=== PATIENT | female | born 1935 | race Caucasian/White ===

== ENCOUNTER 2024-03-13 21:53 | Inpatient (IN) | payer MEDICARE, OTHER, SELFPAY ==
[2024-03-13] VITALS (7 sets, daily range): BP systolic 114–152; BP diastolic 61–134; BMI 23.0
[2024-03-13 13:07] LABS: % Basophils 0.4 % (0-2); % Eosinophils 0.6 % (0-6); % Immature Granulocytes 0.5 % (0-0.5); % Lymphocytes 5.5 % (20.5-51.1); Absolute Eosinophils 0.1 10^3/uL (0-0.7); Absolute Immature Granulocytes 0.1 10^3/uL (0-0.05); Absolute Lymphocytes 0.6 10^3/uL (1.2-3.4); Absolute Monocytes 0.9 10^3/uL (0.1-0.6); Absolute Neutrophils 8.5 10^3/uL (1.4-6.5); Hematocrit 30.7 % (37.0-47.0); Hemoglobin 9.9 g/dL (12.0-16.0); Mean Corp Hgb Conc. 32.2 g/dL (33.0-37.0); Mean Corpuscular Hgb 29.7 pg (27.0-31.0); Mean Corpuscular Volume 92.2 fL (81.0-99.0); Nucleated Red Blood Cells % 0 %; Platelet Count 285 10^3/uL (130-400); Red Blood Cell Count 3.33 10^6/uL (4.20-5.40); Red Cell Dist. Width 14.8 % (11.5-14.5); White Blood Cell Count 10.1 10^3/uL (4.8-10.8)
[2024-03-13 13:26] LABS: NT-proBNP 8020 pg/ml
[2024-03-13 13:46] LABS: ALT (SGPT) 18 U/L (0-35); AST (SGOT) 36 U/L (14-36); Albumin 3.1 g/dl (3.5-5.0); Alkaline Phosphatase 80 U/L (38-126); Blood Urea Nitrogen 33 mg/dl (7-17); Calcium 8.9 mg/dl (8.4-10.2); Carbon Dioxide 24 mmol/L (22-30); Chloride 102 mmol/L (98-107); Glucose 133 mg/dl (70-99); Lipase 129 U/L (23-300); Potassium 4.3 mmol/L (3.5-5.1); Sodium 132 mmol/L (135-145); Total Bilirubin 0.4 mg/dl (0.2-1.3); Total Protein 5.9 g/dl (6.3-8.2); eGFR 39.55
--- NOTE | 2024-03-13 14:32 | CON.CRS ---
Consultation
-
Date/Time Consultation Requested: 03/13/2024
Date/Time Consultation Performed: 03/13/2024, 14:33
Performing Provider: Dillon Chcias MD
Reason for Consultation: abdominal pain
Medical History
-
Chief Complaint: abdominal pain
History of Present Illness:
Patient is an 88-year-old female with PMH of PUD, HLD, HTN, aortic insufficiency, A-fib, right phrenic nerve palsy, CAD (s/p coronary stents), and distal rectal cancer s/p robotic LAR with DLI in by Dr. Evangelista in 05/2022 s/p DLI reversal 08/2022 (path
showed positive LVI, tumor cells and 1 out of 19 lymph nodes; plan at that time was to monitor only, no adjuvant therapy, with no active surveillance).� She has followed with Dr. Evangelista, last appointment was February 2023. At that time she was having
loose stools with urgency and was directed to avoid dairy, use Metamucil and Imodium as needed.�
She presents today for worsening symptoms of rectal bleeding and incontinence for the last month, as well as some abdominal pain.�Her daughter had called our office last week with concerns the patient felt like 'something was in her rectum' and had
been complaining of abdominal and perianal pain. It was advised she follow-up this week and saw Dr. Chicas earlier today. During the exam, he was unable to advance his finger past her anastomosis. Given her abdominal pain and perianal pain, he
advised her to go to the ER. Currently she denies any fevers or issues with nausea/vomiting. She has had a good appetite and eating well.� She has noted some intermittent lower abdominal pains mostly on the left but sometimes on the right. Currently
she had right lower quadrant pain.� Her BMs have been loose and incontinent with bleeding. She also complaints of SOB, and saw her diesel engine mechanic today. Currently she is in the Er waiting room.
Past Medical History
Past Medical History: CAD, Cancer (rectal cancer), HTN, Hypercholesterolemia and Other (osteoarthritis, gastric ulcer, diverticulosis, edema, right phrenic nerve palsy, dementia)
Past Surgical History: Cardiac (bypass s/p stents, aortic valve insufficiency), Cholecystectomy, Gynecological (tubal ligation, Flex Sig and resection and closure of ileostomy 08/2022, robotic LAR with DLI in by Dr. Evangelista in 05/2022) and Other
(inguinal hernia repair 2003 & 2004, inguinal hernia repair 2003 & 2004, cataract surgery, )
Social History
Tobacco: Non-Smoker
Alcohol: None
Drug: None
Family History
Family History: Reviewed & Not Pertinent
Allergies / Home Medications
Allergy/AdvReac Type Severity Reaction Status Date / Time
amlodipine Allergy Unknown Verified 03/13/24 12:41
clarithromycin Allergy Nausea Verified 03/13/24 12:41
codeine [Codeine] Allergy vomiting/na Verified 03/13/24 12:41
usea
erythromycin base Allergy Nausea Verified 03/13/24 12:41
oxycodone HCl [From Percocet] Allergy Nausea Verified 03/13/24 12:41
�Medication �Instructions �Recorded �Confirmed �Type
aspirin 81 mg tablet,delayed 81 mg PO DAILY Blood clot 03/16/19 09/08/22 History
release (Adult Low Dose Aspirin) prevention/tx
ezetimibe 10 mg tablet 10 mg PO QPM High cholesterol 03/16/19 09/08/22 History
isosorbide mononitrate 60 mg 120 mg PO DAILY Blood pressure 03/16/19 09/08/22 History
tablet,extended release 24 hr
ramipril 5 mg capsule 5 mg PO DAILY Blood pressure 03/16/19 09/08/22 History
apixaban 2.5 mg tablet (Eliquis) 2.5 mg PO BID Blood clot 05/28/20 09/08/22 History
prevention/tx
potassium chloride 10 mEq 10 meq PO DAILY Supplement 03/26/22 09/08/22 History
capsule,extended release
amlodipine 5 mg tablet 5 mg PO DAILY Blood pressure ##90 03/30/22 09/08/22 Rx
furosemide 40 mg tablet 40 mg PO QPM Fluid 03/30/22 09/08/22 Rx
retention/Swelling #30 tabs
furosemide 80 mg tablet 80 mg PO DAILY Fluid 03/30/22 09/08/22 Rx
retention/Swelling #30 tabs
nitroglycerin 0.4 mg sublingual 0.4 mg sublingual Q5-15M PRN chest 06/16/22 09/07/22 History
tablet pain
pravastatin 80 mg tablet 80 mg DAILY 06/21/22 09/08/22 History
Review of Systems
-
History Source: Patient and Family
All other systems: Negative unless noted
Respiratory: Other (shortness of breath)
Abdomen/GI: Abdominal Pain, Diarrhea and Bloody Stools
: Incontinence
A 10 point review of systems was completed, and was negative except as per HPI.
Physical Exam
Vital Signs
Temp 98.0 F 03/13/24 12:41
Pulse 89 03/13/24 12:41
Resp Rate 18 03/13/24 12:41
Blood pressure 121/61 03/13/24 12:41
SaO2 99 03/13/24 12:41
Lab Results / Allergies
03/13/24 12:58
03/13/24 12:58
WBC 10.1 10^3/uL (4.8-10.8) 03/13/24 12:58
Hgb 9.9 g/dL (12.0-16.0) L 03/13/24 12:58
Hct 30.7 % (37.0-47.0) L 03/13/24 12:58
Plt Count 285 10^3/uL (130-400) 03/13/24 12:58
Abs Immat Gran (auto) 0.1 10^3/uL (0-0.05) H 03/13/24 12:58
Neutrophils % 84.0 % (42.2-75.2) H 03/13/24 12:58
Allergy/AdvReac Type Severity Reaction Status Date / Time
amlodipine Allergy Unknown Verified 03/13/24 12:41
clarithromycin Allergy Nausea Verified 03/13/24 12:41
codeine [Codeine] Allergy vomiting/na Verified 03/13/24 12:41
usea
erythromycin base Allergy Nausea Verified 03/13/24 12:41
oxycodone HCl [From Percocet] Allergy Nausea Verified 03/13/24 12:41
Physical Exam
General: No Apparent Distress
GI: Soft and Tender (LLQ/RLQ (currently worse in RLQ))
Rectal: Other (Per Dr. Chicas in the office earlier today: decreased tone, blood noted, anastamosis is palpable about 4-5cm from anal verge with stenosis and unable to pass finger through)
Skin: Warm and Dry
Neuro: Awake and Alert
Psych: Calm
Data Reviewed
-
Labs: Labs Reviewed by me and Discussed with Family
Old Records: Reviewed
Assessment / Plan
-
Assessment: 88 yo female with a PMH of rectal cancer s/p LAR with ileostomy by Dr. Evangelista in 2021 and then subsequent reversal of ileostomy, presents to our office earlier today due to worsening abdominal and perianal pain with loose/bloody stools
with incontinence and SOB
Plan:
1. Urgent CT A/P with po and IV contrast.
2. Pain control PRN.
3. Remain NPO.
4. Hold Eliquis for now.
5. Further plans to follow once CT performed.
6. Discussed the above with patient's son and patient.
[2024-03-13] MEDS: OMNIPAQUE 50 ML PO (17:16)
[2024-03-13] MEDS: OFIRMEV 100 IV (17:44)
--- NOTE | 2024-03-13 18:52 | ED.GENMED ---
History of Present Illness
General
Chief Complaint: Abdominal Pain
Source: patient
Exam Limitations: none
Time Seen by Provider: 03/13/24 17:00
Travel History
Have you had any contact with someone who has COVID-19?: No
Do you have any symptoms of coronavirus? Fever > 100 degrees, chills, cough, shortness of breath, sore throat, loss of taste or smell, muscle aches, or headache?: No
History of Present Illness
History of Present Illness:
88-year-old female complaining of lower abdominal pain for days. Also some shortness of breath for weeks. Some bloating distention. Sent by colorectal for further evaluation.
Past History
Past History
ED Past Medical History: Arrthythmia (afib), CAD, Cancer, CHF, HTN, Hypercholesterolemia, [place], Valvular disease, Other (SSS) and Other (upper and lower GI bleed)
ED Past Surgical History: Cardiac, Cholecystectomy and Other (Hernia repairs. Resection colon)
Social History
Tobacco: Non-smoker
Review of Systems
Review of Systems
All Other Systems: Not applicable
Constitutional: Denies fever
Respiratory: Reports trouble breathing
Cardiac: Reports no symptoms
Phy Exam
Physical Exam
Physical Exam:
GENERAL: Alert and oriented in no apparent distress
EYE: Orbits normal.
NECK: Supple
ENT: Pharynx without erythema
CARDIAC: Mildly irregular rhythm..
LUNGS: Minimal bibasilar rales. No respiratory distress
ABDOMEN: Mildly distended. Diffuse lower abdominal tenderness. No rebound or guarding no mass or hernia
NEUROLOGICAL: Alert and oriented , grossly non-focal
SKIN: Warm and dry, no rash or lesion, no discoloration, skin intact.
MUSCULOSKELETAL: No edema,no deformity.Good color
PSYCH: Normal and appropriate interaction.
Course
Orders/Labs/Results
Orders:
Orders
03/13/24 Breakfast
NPO
Allow oral meds: Yes
Allow clear liquids: No
03/13/24 12:48
ECG [Electrocardiogram (*1)] Urgent
Reason for Study: Shortness of Breath
EKG- Treatment ONCE
03/13/24 12:58
Complete Blood Count/With Diff Urgent
Comprehensive Metabolic Panel Urgent
Lipase Urgent
NT-proBNP Urgent
03/13/24 17:06
Iohexol [Omnipaque] See Protocol PO NOW STA
CXR2 [CR Chest - 2 Views ] Urgent
Comment:
Reason For Exam: sob
03/13/24 17:07
CT Abd/pel W Iv And Oral Contr Urgent
Comment:
Reason For Exam: Lower abdominal pain
03/13/24 17:14
Acetaminophen 1000MG/100Ml [Ofirmev] 1,000 mg in 100 ml IV ONCE
Acetaminophen IV Indication:: ED Narcotic Naive Pt-ONCE
03/13/24 21:01
Urinalysis Reflex To Culture Urgent
Date Specimen was Collected: 03/14/24
Time Specimen was Collected: 11:48
03/13/24 21:39
Admit/Transfer Patient As Directed
Co-Sign Provider:
Level of Care: Inpatient admission
Assign to:: Telemetry
Physician / Group: adrián
Diagnosis: seroma
Reason for Telemetry: Subacute Heart Failure
Date to Stop Telemetry: 03/15/24
Time to Stop Telemetry: 11:00
Reason for Hospitalization: seroma
Expected length of stay greater than two midnights?: Yes
ELOS- Estimated Length of Stay in days: 3
I certify the patient meets the requirements for IP care: Yes
03/13/24 21:40
Code Status As Directed
Resuscitation Status: Full Code
Furosemide [Lasix] 40 mg IV NOW STA
03/13/24 21:44
UROLOGY CONSULT Routine
Consulting Provider: Ruperto La
Was physician already notified: Yes
03/13/24 23:59
ColoRectal Surgery Consult Routine
Consulting Provider: Dillon Chicas
Was physician already notified: Yes
HF DIETARY CONSULT Routine
HF EDUCATOR CONSULT Routine
Comment:
Activity As Directed
Activity Level: As Tolerated
Intake/ Output As Directed
Frequency: Per unit guidelines
Patient Education As Directed
Type: CHF folder
Comment: give on admission. Document in Interdisciplinary Education record
Sleep Apnea Assessment by RN As Directed
Comment:
Physician Instructions:
Venous Foot Pumps As Directed
Location: Bilateral feet
Vital Signs As Directed
Frequency: Other
Additional Instructions:: Q12 or per unit guidelines if more frequent.
Weight As Directed
Frequency: Daily
Type of Scale: Standing Scale
Comment: Daily morning weight. If unable to stand, use balanced bed scale.
Weight As Directed
Frequency: Once
Type of Scale: Standing Scale
Comment: Upon Admission. If unable to stand, use balanced bed scale.
Pulse Ox/cont/shift [RESP] Routine
Quantity: 1
Special Instructions: Daily pulse oximetry at rest. If greater than 92% at rest also obtain pulse oximetry
while ambulating as tolerated.
Pt Eval And Treat Routine
Activity Level: As Tolerated
DX Deep Vein Thrombosis Video Routine
03/14/24 05:51
Complete Blood Count/No Diff IN AM
03/14/24 05:52
Cardiovascular Evaluation IN AM
Magnesium IN AM
TSH Reflex To Free T4 IN AM
03/14/24 08:00
Aspirin Low Dose EC [Aspir Low (Enteric Coated)] 81 mg PO DAILY
Dapagliflozin [Farxiga] 10 mg PO DAILY
Metoprolol Xl [Toprol Xl] 50 mg PO BID
03/14/24 18:00
Ezetimibe [Zetia] 10 mg PO QPM
Memantine HCl [Namenda] 10 mg PO QPM
Pravastatin Sodium [Pravachol] 80 mg PO QPM
03/15/24 06:00
Basic Metabolic Panel IN AM
Complete Blood Count/No Diff IN AM
03/15/24 11:00
DC Protocol for Telemetry ONCE
03/16/24 06:00
Basic Metabolic Panel IN AM
Complete Blood Count/No Diff IN AM
03/17/24 06:00
Complete Blood Count/No Diff IN AM
03/18/24 06:00
Complete Blood Count/No Diff IN AM
Abnormal Lab Results
03/13/24
12:58
RBC 3.33 L 10^6/uL
(4.20-5.40)
Hgb 9.9 L g/dL
(12.0-16.0)
Hct 30.7 L %
(37.0-47.0)
MCHC 32.2 L g/dL
(33.0-37.0)
RDW 14.8 H %
(11.5-14.5)
Abs Immat Gran (auto) 0.1 H 10^3/uL
(0-0.05)
Absolute Neuts (auto) 8.5 H 10^3/uL
(1.4-6.5)
Absolute Lymphs (auto) 0.6 L 10^3/uL
(1.2-3.4)
Absolute Monos (auto) 0.9 H 10^3/uL
(0.1-0.6)
Neutrophils % 84.0 H %
(42.2-75.2)
Lymphocytes % 5.5 L %
(20.5-51.1)
Sodium 132 L mmol/L
(135-145)
BUN 33 H mg/dl
(7-17)
Creatinine 1.3 H mg/dL
(0.6-1.0)
Glucose 133 H mg/dl
(70-99)
Total Protein 5.9 L g/dl
(6.3-8.2)
Albumin 3.1 L g/dl
(3.5-5.0)
03/13/24 12:58
03/13/24 12:58
Vital Signs
Initial and Last Documented VS:
Initial Vital Signs
Temp Pulse Resp BP Pulse Ox
98.0 F 89 18 121/61 99
03/13/24 12:41 03/13/24 12:41 03/13/24 12:41 03/13/24 12:41 03/13/24 12:41
Last Documented Vital Signs
Temp Pulse Resp BP Pulse Ox
97.5 F 125 18 144/76 96
03/14/24 11:30 03/14/24 11:30 03/14/24 11:30 03/14/24 11:30 03/14/24 11:30
*Pulse Oximetry
Patient hypoxic: no
*EKG
Interpreted by ED Provider?: Yes
Interpretation: abnormal
Comparison EKG: changes noted
Heart Rate: 94
Rate: normal
Rhythm: sinus
Pine Top: normal axis
Interval: normal interval
QRS Pattern: normal QRS
Ischemia: non-specific ST changes
*Critical Care Note
Total Time (30-74mins, 75-104mins- exclusive of procedures): Not Applicable
Data Reviewed
Review of Other/Old Records Reveals: Labs, Records, Testing and Discharge Summary
ED Attending Note
-
Portions of this chart may have been created with voice recognition software.� Occasional wrong word or��sound alike� substitutions may have occurred due to the inherent limitations of voice recognition software.
Discharge Plan
Departure
Patient Disposition: Admit
Date of Disposition: 03/13/24
Time of Disposition: 21:01
Presentation/result/management discussed w/ accepting MD/DO: Colorectal surgery
Discharge Problem:
Abdominal pain, Possible pelvic abscess, Mild CHF, Renal insufficiency, Left hydronephrosis
Interventions
Interventions:
*Risk Screen - Suicide Last Done: 03/14/24 00:32
*General Assessment Last Done: 03/13/24 17:48
*Neglect/Abuse Screening Last Done: 03/13/24 17:48
ED- Fall Risk Assessment Last Done: 03/14/24 00:35
*ED COVID-19 Vaccine History Last Done: 03/13/24 12:41
*Nursing Disposition Last Done: 03/14/24 00:35
MJ-Esynxy-[id number] Assessment Last Done: 03/13/24 20:20
Discharge Date and Time
Discharge Date/Time: 03/14/24 00:35
--- NOTE | 2024-03-13 21:05 | HPS.HSE ---
Family Physician
-
Family Physician: Brenda Cardenas
Chief Complaint
-
Abdominal pain
History of Present Illness
88-year-old with past medical history for peptic ulcer disease, hyperlipidemia, hypertension, A-fib, coronary artery disease, rectal cancer presented to us with right lower abdominal pain for past few days. Send stated abdominal distention.
Patient stated she had formed bowel movement 3-4 times yesterday. Denies any bleeding yesterday. Denied nausea or vomiting or diarrhea. Patient was also complained of short of breath, orthopnea. Also complained of worsening bilateral lower
extremity edema. Patient denies any headache, dizziness, syncopal episode. Patient denies fever, chills, chest pain. Patient denies dysuria hematuria. Patient was evaluated by colorectal this morning. Patient was also evaluated by cardiology,
who added Farxiga daily, increase Lasix 20 mg to 40 mg, also changes metoprolol 50 to twice a day.
Medical History
Past Medical History
Past Medical History: Reports Other
Additional Past Medical History:
Peptic ulcer disease
Hypertension
Aortic insufficiency
A-fib
Coronary artery disease
Rectal cancer
Dementia
Past Surgical History: Reports Other
Additional Past Surgical History:
Cardiac bypass
Cardiac stent
Cholecystectomy
Tubal ligation
Flex sig and resection and closure of ileostomy
Robotic MRR with DLI
Inguinal hernia repair
Cataract surgery
Social History
Tobacco: Non-smoker
Alcohol: None
Drug: None
Living: With Family
Family History
Family History: Not pertinent
Allergies / Home Medications
Allergies reflects when Allergies were last updated in [facility].
Home Medications with original date entered in [facility]
Allergy/Medication List:
Allergies
Allergy/AdvReac Type Severity Reaction Status Date / Time
amlodipine Allergy Unknown Verified 03/13/24 12:41
clarithromycin Allergy Nausea Verified 03/13/24 12:41
codeine [Codeine] Allergy vomiting/na Verified 03/13/24 12:41
usea
erythromycin base Allergy Nausea Verified 03/13/24 12:41
oxycodone HCl [From Percocet] Allergy Nausea Verified 03/13/24 12:41
Home Medications
aspirin 81 mg tablet,delayed release (Adult Low Dose Aspirin) 81 mg PO DAILY Blood clot prevention/tx 03/16/19
ezetimibe 10 mg tablet 10 mg PO QPM High cholesterol 03/16/19
isosorbide mononitrate 60 mg tablet,extended release 24 hr 120 mg PO DAILY Blood pressure 03/16/19
ramipril 5 mg capsule 5 mg PO DAILY Blood pressure 03/16/19
apixaban 2.5 mg tablet (Eliquis) 2.5 mg PO BID Blood clot prevention/tx 05/28/20
potassium chloride 10 mEq capsule,extended release 10 meq PO DAILY Supplement 03/26/22
amlodipine 5 mg tablet 5 mg PO DAILY Blood pressure ##90 03/30/22
furosemide 40 mg tablet 40 mg PO QPM Fluid retention/Swelling #30 tabs 03/30/22
furosemide 80 mg tablet 80 mg PO DAILY Fluid retention/Swelling #30 tabs 03/30/22
nitroglycerin 0.4 mg sublingual tablet 0.4 mg sublingual Q5-15M PRN chest pain 06/16/22
pravastatin 80 mg tablet 80 mg DAILY 06/21/22
Review of Systems
-
Constitutional: Reports No Symptoms
EENT: Reports No Symptoms
Respiratory: Reports Trouble Breathing
Cardiac: Reports No Symptoms
Abdomen/GI: Reports Abdominal Pain and Other (Distention)
: Reports No Symptoms
Musculoskeletal: Reports No Symptoms
Skin: Reports No Symptoms
Neurological: Reports No Symptoms
Endocrine: Reports No Symptoms
Hematologic/Lymphatic: Reports No Symptoms
Psych: Reports No Symptoms
Physical Exam
Vital Signs
Vital Signs
Temp Pulse Resp BP Pulse Ox
97.9 F 108 18 115/99 99
03/13/24 17:27 03/13/24 20:16 03/13/24 20:16 03/13/24 20:16 03/13/24 20:16
Physical Exam
General: Well Developed, Well Nourished and No Apparent Distress
HEENT: NormoCephalic, Moist mucous membranes and Atraumatic
Respiratory: Decreased Breath Sounds
Cardiac: S1/S2 and Regular Rhythm; No Murmur or Rub
GI: Soft, Non Tender, Normal Bowel Sounds, Tender and Distended; No Organomegaly
Rectal: Deferred by Provider
Musculoskeletal: No Clubbing, No Cyanosis and No Edema
Skin: No Rash
Neuro: Nonfocal/grossly intact
Psych: Calm
Laboratory Results
-
03/13/24 12:58
03/13/24 12:58
Laboratory Results
Total Bilirubin 0.4 mg/dl (0.2-1.3) 03/13/24 12:58
AST 36 U/L (14-36) 03/13/24 12:58
ALT 18 U/L (0-35) 03/13/24 12:58
Alkaline Phosphatase 80 U/L (38-126) 03/13/24 12:58
Lipase 129 U/L (23-300) 03/13/24 12:58
Data Reviewed
-
Lab Data: Labs Reviewed by me
Impression/Plan
-
# Abdominal pain likely from likely from seroma
-CT abdomen pelvis with impression of Moderate to severe left hydroureteronephrosis without a discrete obstructing cause identified.
2. Postoperative changes of the rectum. There is loculated fluid within the posterior cul-de-sac in the pelvis measuring up to 5.5 x 3.1 x 7.4 cm. This may represent postoperative seroma versus abscess.
3. Probable reactive ileus of small bowel loops in the lower abdomen.
4. Small left pleural effusion and small volume abdominopelvic ascites.
-Maintain patient n.p.o.
-Hold Eliquis
-surgery to consult IR in the morning for possible aspiration
-Colorectal consulted
# History of rectal adenocarcinoma
# History of ileostomy
# Short of breath likely acute on chronic diastolic heart failure
-BNP 8020
-Chest x-ray with no acute cardiopulmonary process
-Will give 1 dose of Lasix in ER
-Strict ALAYNA
-Daily weight
-Fluid restriction
-FA Rx IgA continued
-Metoprolol continued
# Hyperlipidemia
Statin continued-
# Acute kidney injury/left hydronephrosis
-Creatinine 1.3
-Urology consulted
# Anemia of chronic disease
-Hemoglobin stable 9.9
-No active bleeding
-Continue to monitor
# Permanent A-fib
-EKG with A-fib
-Hold Eliquis
# Dementia
-Memantine continued
# History of coronary artery disease s/p cardiac stent
-Continue aspirin
# DVT prophylaxis
-SCD
# CODE STATUS
-Full code
--- NOTE | 2024-03-13 21:41 | W.PN.UPDATE ---
Update Note
Progress Note Update
This is an addendum to the H&P written by Noy Ugarte on 03/13/2024. Patient seen examined independently with [employer].
88-year-old female past medical history of rectal cancer status post robotic low anterior resection with ileostomy creation with subsequent reversal of ileostomy, anemia, diastolic heart failure, coronary artery disease status post stents,
paroxysmal atrial fibrillation on Eliquis, aortic insufficiency, essential hypertension, hyperlipidemia, peptic ulcer disease, GERD, right phrenic nerve palsy, presenting for abdominal pain and perianal pain with loose/bloody stools and sent in by
colorectal surgery. Patient saw Dr. Chicas earlier today and during examination he was unable to advance his finger past the anastomosis.
Patient also been complaining of shortness of breath.
Lab work shows creatinine 1.3, cardiac BNP of 8000. Hemoglobin of 9.9 which is close to baseline. CT abdomen pelvis showed moderate to severe left hydroureteronephrosis without discrete obstruction. There is postoperative changes in the rectum,
loculated fluid within the posterior cul-de-sac in the pelvis measuring 5.5 x 3.1 x 7.4 cm which could represent postoperative seroma versus abscess. There is probable reactive ileus of small bowel loops in the lower abdomen. Small left pleural
effusion and small volume abdominal pelvic ascites.
Colorectal surgery recommended n.p.o., holding Eliquis. Presentation is more consistent with postoperative seroma. Colorectal will consult IR for drainage. He may consider sigmoidoscopy to evaluate for bleeding/abnormal rectal exam.
Will consult urology given moderate to severe hydronephrosis on the left side with INO. Hold ramipril.
Shortness of breath secondary to CHF exacerbation. Patient follow [facility] cardiology.
[2024-03-14] VITALS (8 sets, daily range): BP systolic 83–147; BP diastolic 69–85; BMI 23.2
[2024-03-14 06:22] LABS: Hematocrit 29.1 % (37.0-47.0); Hemoglobin 9.7 g/dL (12.0-16.0); Mean Corp Hgb Conc. 33.3 g/dL (33.0-37.0); Mean Corpuscular Hgb 30.5 pg (27.0-31.0); Mean Corpuscular Volume 91.5 fL (81.0-99.0); Mean Platelet Volume 10.2 fL (7.4-10.4); Platelet Count 268 10^3/uL (130-400); Red Blood Cell Count 3.18 10^6/uL (4.20-5.40); Red Cell Dist. Width 14.7 % (11.5-14.5); White Blood Cell Count 9.1 10^3/uL (4.8-10.8)
[2024-03-14 06:52] LABS: ALT (SGPT) 16 U/L (0-35); AST (SGOT) 37 U/L (14-36); Albumin 2.8 g/dl (3.5-5.0); Alkaline Phosphatase 84 U/L (38-126); Blood Urea Nitrogen 32 mg/dl (7-17); Calcium 8.8 mg/dl (8.4-10.2); Carbon Dioxide 21 mmol/L (22-30); Chloride 102 mmol/L (98-107); Direct Bilirubin 0.4 mg/dl (0.0-0.4); Estimated Creatinine Clearance 24 ml/min; Glucose 86 mg/dl (70-99); HDL Cholesterol 48 mg/dl; LDL Cholesterol, Calculated 42 mg/dl; Magnesium 1.8 mg/dl (1.6-2.3); Potassium 4.6 mmol/L (3.5-5.1); Sodium 132 mmol/L (135-145); Total Bilirubin 0.5 mg/dl (0.2-1.3); Total Cholesterol 104 mg/dl (50-199); Total Protein 5.5 g/dl (6.3-8.2); Triglyceride 72 mg/dl (10-149); Very Low Density Lipoprotein 14 mg/dl (0-30); eGFR 39.55
[2024-03-14 07:17] LABS: TSH Reflex To Free T4 5.59 uIU/ml (0.47-4.68)
--- NOTE | 2024-03-14 07:32 | CONS.URO ---
Consultation
-
Date/Time Consultation Performed: 03/14/24 0825
Performing Provider: Abhinav
Reason for Consultation: Left ureteral obstruction
Medical History
History of Present Illness
88 yo female with h/o rectal cancer s/p robotic LAR with DLI and 05/2022 s/p DLI reversal 08/2022 (path showing positive LVI, tumor cells in 11/11 LNs. Recently: 1 month of intermittent rectal bleeding, worsening fecal incontinence, intermittent
abdominal pains. Admitted via ED yesterday. Imaging reveals new-onset left hydroureteronephrosis.
Past Medical History
Past Medical History: Other (Atrial fibbrillation, CAD, Cancer, CHF, HTN, Hypercholesterolemia, RI, Valvular disease, GI bleeds)
Past Surgical History: Other ( Cardiac (bypass s/p stents, aortic valve insufficiency), Cholecystectomy, Gynecological (tubal ligation, Flex Sig and resection and closure of ileostomy 08/2022, robotic LAR with DLI in by Dr. Evangelista in 05/2022);
inguinal hernia repairs 2004 & 2004, inguinal hernia repair 2004 & 2005, catara)
Allergies/Home Medications
Allergies
Allergy/AdvReac Type Severity Reaction Status Date / Time
amlodipine Allergy Unknown Verified 03/13/24 12:41
clarithromycin Allergy Nausea Verified 03/13/24 12:41
codeine [Codeine] Allergy vomiting/na Verified 03/13/24 12:41
usea
erythromycin base Allergy Nausea Verified 03/13/24 12:41
oxycodone HCl [From Percocet] Allergy Nausea Verified 03/13/24 12:41
Home Medications
�Medication �Instructions �Recorded �Confirmed �Type
aspirin 81 mg tablet,delayed 81 mg PO DAILY Blood clot 03/16/19 03/13/24 History
release (Adult Low Dose Aspirin) prevention/tx
ezetimibe 10 mg tablet 10 mg PO QPM High cholesterol 03/16/19 03/13/24 History
apixaban 2.5 mg tablet (Eliquis) 2.5 mg PO BID Blood clot 05/28/20 03/13/24 History
prevention/tx
furosemide 40 mg tablet 40 mg PO QPM Fluid 03/30/22 03/13/24 Rx
retention/Swelling #30 tabs
pravastatin 80 mg tablet 80 mg DAILY 06/21/22 03/13/24 History
dapagliflozin propanediol 10 mg 10 mg PO DAILY 03/13/24 03/13/24 History
tablet (Farxiga)
memantine 10 mg tablet 10 mg PO QPM 03/13/24 03/13/24 History
metoprolol succinate 50 mg 50 mg PO BID 03/13/24 03/13/24 History
tablet,extended release 24 hr
Physical Exam
Vital Signs
Vital Signs
Temp Pulse Resp BP Pulse Ox
97.8 F 115 18 129/72 98
03/14/24 03:49 03/14/24 03:49 03/14/24 03:49 03/14/24 03:49 03/14/24 03:49
Lab / Testing Results
Laboratory Results
03/14/24 05:51
03/14/24 05:52
Physical Exam
elderly female
General: No Apparent Distress
Assessment / Plan
-
left hydroureteronephrosis -- due to either recurrent cancer in pelvis or late-effect of previous surgeries
Rec: with satisfactory renal function overall, urgent intervention is not indicated; will await CRS and Oncology decisions to determine if alleviation of obstruction of left distal ureter is worth the potential morbidity
Data Reviewed
-
CT Scan: Image personally visualized and interpreted (left hydroureteronephrosis with obstruction deep in pelvis) and Other ([facility]AU COLLINS [CRS])
Old Records: Reviewed
[2024-03-14 07:47] LABS: Free T4 1.52 ng/dl (0.78-2.19)
[2024-03-14] MEDS: TOPROL XL 50 MG PO ×2 (08:21→20:21)
[2024-03-14] MEDS: TYLENOL 650 MG PO ×2 (08:21→23:51)
[2024-03-14] MEDS: FARXIGA 10 MG PO (08:22)
[2024-03-14] MEDS: ASPIR LOW (ENTERIC COATED) 81 MG PO (08:22)
--- NOTE | 2024-03-14 09:30 | PTCARENOTE ---
Assumed care of pt at AM shift change, hyacinth, [email or web address]. Pt complaining of RLQ pain, one time order for tylenol obtained and administered. Pt now sleeping comfortably in bed. Plan of care ongoing.
--- NOTE | 2024-03-14 09:53 | W.PN.CRS1 ---
Today's Communication / Plan
-
IR aspiration
hold Eliquis
likely flex sig tomorrow or Tuesday
Assessment/Plan
-
Assessment: 88 yo female with a PMH of rectal cancer s/p LAR with ileostomy by Dr. Evangelista in 2021 and then subsequent reversal of ileostomy, presents to our office earlier today due to worsening abdominal and perianal pain with loose/bloody stools
with incontinence and SOB, found to have loculated fluid within the posterior cul-de-sac in the pelvis measuring up to 5.5 x 3.1 x 7.4 cm and moderate to severe left hydroureteronephrosis, s/p anal stenosis dilation by Dr. Chicas 03/13
VSS, WBC 9.1
Plan:
1. Given findings of the fluid collection on CT, I have reached out to IR for aspiration. They are able to do this likely from the transgluteal approach. 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
Discussed with patient who is in agreement. I will also send for a creatinine of the fluid per urology.
2. Plan for flex sig either tomorrow or Tuesday with Dr. Chicas.
3. Continue to hold Eliquis for now.
4. Will make NPO for IR.
5. Appreciate medicine/urology.
Subjective Data
Subjective Data
Date of Service: March 14, 2024
Patient states she feels improved from yesterday. She still has abdominal pain but less so. The area of pain is in the RLQ. She denies nausea or vomiting. She has flatus. She does not had any bowel movements today.
Objective Data
-
Vital Signs
Temp Pulse Resp BP Pulse Ox
97.6 F 112 18 143/85 98
03/14/24 07:30 03/14/24 07:30 03/14/24 07:30 03/14/24 08:21 03/14/24 07:30
Intake & Output
03/13/24 03/14/24 03/15/24
06:59 06:59 06:59
Other:
Number of approximated MODERATE 3
amounts of urine
Lab Results
03/14/24 05:51
03/14/24 05:52
Physical Exam
-
General: No Acute Distress and AOx3
Abdomen: Soft, Distended and Tender (RLQ (mild))
Skin: Warm and Dry
[2024-03-14 11:03] LABS: INR 1.53; PT 18.5 Sec (11.4-14.6)
[2024-03-14 12:01] LABS: Urine Albumin Trace (Neg - Trace); Urine Bilirubin Negative (Negative); Urine Character Clear (Clear); Urine Color Yellow; Urine Glucose Negative (Negative); Urine Ketone Negative (Negative); Urine Leukocyte Negative (Negative); Urine Nitrite Negative (Negative); Urine Occult Blood Negative (Negative); Urine Urobilinogen Negative (Neg - 1+)
--- NOTE | 2024-03-14 12:12 | W.PN.HOSP.TC ---
Today's Communication/Plan
-
To IR for aspiration of seroma/fluid analysis results pending/cytology
Continue IV diuresis
Oxygen support as needed
Monitor H&H with slow GI bleed
CRS with consideration toward sigmoidoscopic next 48 hours
Assessment / Plan
Assessment / Plan
88-year-old female past medical history of rectal cancer status post robotic low anterior resection with ileostomy creation with subsequent reversal of ileostomy, anemia, diastolic heart failure, coronary artery disease status post stents,
paroxysmal atrial fibrillation on Eliquis, aortic insufficiency, essential hypertension, hyperlipidemia, peptic ulcer disease, GERD, right phrenic nerve palsy, presenting for abdominal pain and perianal pain with loose/bloody stools and sent in by
colorectal surgery. Patient saw Dr. Chicas earlier today and during examination he was unable to advance his finger past the anastomosis.
Lab work shows creatinine 1.3, cardiac BNP of 8000. Hemoglobin of 9.9 which is close to baseline.
Abdominal distention/questionable lower GI bleed/known history of colorectal CA with ileostomy and now post reversal
CT abdomen pelvis showed moderate to severe left hydroureteronephrosis without discrete obstruction.
There is postoperative changes in the rectum, loculated fluid within the posterior cul-de-sac in the pelvis measuring 5.5 x 3.1 x 7.4 cm which could represent postoperative seroma versus abscess. There is probable reactive ileus of small bowel
loops in the lower abdomen. Small left pleural effusion and small volume abdominal pelvic ascites.
-There is soft tissue omental nodularity predominantly throughout the left anterior abdomen and pelvis in keeping with peritoneal carcinomatosis. There is also abnormal and large partially necrotic bilateral inguinal lymphadenopathy suspicious for
metastatic disease after presumed fluid collection represent malignant ascites. May be underlying partial small bowel obstruction in addition to left-sided hydro ureteral nephrosis
-For interventional radiology aspiration of presumed seroma today/fluid analysis to be sent and cytology
Colorectal surgery recommended n.p.o., holding Eliquis. Presentation is more consistent with postoperative seroma. Colorectal will consult IR for drainage.
He may consider sigmoidoscopy to evaluate for bleeding/abnormal rectal exam. possibly for or Tuesday
Consult urology given moderate to severe hydronephrosis on the left side with INO. Hold ramipril.
-Seen by urology/they are holding off on any interventions awaiting colorectal
Shortness of breath secondary to CHF exacerbation. Patient follow [facility] cardiology.
-With shortness of breath and elevated proBNP/chest x-ray did not show any profound CHF or pulmonary edema
-Will benefit from IV diuresis
-Continue on metoprolol XL
-Most recent echo here noted a 53% EF mild MR/ No RWMA/moderate AR
-Consideration for cardiology consult here if refractory
Acute kidney injury
-
Prior history of atrial fibrillation
-On Eliquis
-Rate controlled with metoprolol
-Holding Eliquis due to possible interventions
Abnormally elevated TSH
-In the setting of systemic illness qualifies for euthyroid sick with normal free T4
-Follow-up as outpatient
Prior surgical history includes CABG, PCI stents, cholecystectomy, robotic LAR with DLI May 2022
Anticipated Discharge: > 48 hours
Subjective/Interval History
-
Date of Service: March 14, 2024
While sleeping in no distress he does admit to abdominal distention type of pain but has relief with acetaminophen she states. Last time she moved her bowels was 2 days ago. Presently denies any significant shortness of breath although she states
she has been short of breath in the last few days.
Objective Data
-
Labs:
Laboratory Results
03/14/24 03/14/24 03/14/24
05:51 05:52 10:31
WBC 9.1
Hgb 9.7 L
Hct 29.1 L
Plt Count 268
PT 18.5 H
INR 1.53
Sodium 132 L
Potassium 4.6
Chloride 102
Carbon Dioxide 21 L
BUN 32 H
Creatinine 1.3 H
Glucose 86
Calcium 8.8
Total Bilirubin 0.5
AST 37 H
ALT 16
Alkaline Phosphatase 84
Vital Signs:
Vital Signs
Temp Pulse Resp BP Pulse Ox
97.5 F 125 18 144/76 96
03/14/24 11:30 03/14/24 11:30 03/14/24 11:30 03/14/24 11:30 03/14/24 11:30
Review of Systems
-
History Source: Patient and Family
Constitutional: Reports Weight Gain
EENT: Reports No Symptoms Reported
Respiratory: Reports No Symptoms
Cardiac: Reports No Symptoms
Abdomen/GI: Reports Constipated
Genitourinary: Reports Flank Pain and Difficulty Voiding
Physical Exam
-
General: No Apparent Distress
HEENT: Normocephalic
Respiratory: Clear to Auscultation
Cardiac: Irregular Rhythm
GI: Soft, Tender and Distended
Musculoskeletal: Edema, Right Lower Extrem and Edema, Left Lower Extrem
Neuro: Awake and Alert
Psych: Calm
Data Reviewed
-
Total Time Spent with Patient (in minutes): 56
CT Scan: Report Reviewed by me (Reviewed results of CT scan and discussed with radiology)
Labs: Labs Reviewed by me (Hemoglobin 9.7 near baseline/sodium 132 bicarb 21 creatinine 1.3)
[2024-03-14] MEDS: MIRALAX PO (12:50)
[2024-03-14] MEDS: LASIX 20 MG IV (13:17)
--- NOTE | 2024-03-14 16:47 | W.PN.IRAD.PR ---
Procedure Note
-
Upon attempted aspiration of pelvic collection, there was significant decrease in the size of the collection with pt in prone position in CT. Not enough fluid to aspirate. Given the change with positioning, unlikely to represent abscess.
[2024-03-14] MEDS: PRAVACHOL 80 MG PO (17:26)
[2024-03-14] MEDS: NAMENDA 10 MG PO (17:27)
[2024-03-14] MEDS: ZETIA 10 MG PO (17:27)
[2024-03-14] MEDS: COLACE 100 MG PO (20:21)
[2024-03-15] VITALS (7 sets, daily range): BP systolic 117–143; BP diastolic 65–92; PULSE 111–118; O2SAT 97; BMI 23.0
[2024-03-15 06:33] LABS: Hematocrit 30.1 % (37.0-47.0); Hemoglobin 9.9 g/dL (12.0-16.0); Mean Corp Hgb Conc. 32.9 g/dL (33.0-37.0); Mean Corpuscular Volume 91.2 fL (81.0-99.0); Mean Platelet Volume 10.6 fL (7.4-10.4); Platelet Count 278 10^3/uL (130-400); Red Cell Dist. Width 14.7 % (11.5-14.5); White Blood Cell Count 9.2 10^3/uL (4.8-10.8)
[2024-03-15 06:54] LABS: Blood Urea Nitrogen 33 mg/dl (7-17); Calcium 8.6 mg/dl (8.4-10.2); Carbon Dioxide 24 mmol/L (22-30); Chloride 102 mmol/L (98-107); Estimated Creatinine Clearance 21 ml/min; Glucose 87 mg/dl (70-99); Potassium 4.1 mmol/L (3.5-5.1); Sodium 133 mmol/L (135-145); eGFR 33.31
[2024-03-15] MEDS: ASPIR LOW (ENTERIC COATED) 81 MG PO (11:35)
[2024-03-15] MEDS: COLACE 100 MG PO ×2 (11:35→21:52)
[2024-03-15] MEDS: FARXIGA 10 MG PO (11:35)
[2024-03-15] MEDS: TOPROL XL 50 MG PO ×2 (11:36→21:52)
[2024-03-15] MEDS: MIRALAX 17 GRAMS PO (11:36)
--- NOTE | 2024-03-15 12:00 | W.PN.CRS1 ---
Today's Communication / Plan
-
clears
hold off on flex sig today
medical oncology
Assessment/Plan
-
Assessment: 88 yo female with a PMH of rectal cancer s/p LAR with ileostomy by Dr. Evangelista in 2021 and then subsequent reversal of ileostomy, presents to our office earlier today due to worsening abdominal and perianal pain with loose/bloody stools
with incontinence and SOB, found to have loculated fluid within the posterior cul-de-sac in the pelvis measuring up to 5.5 x 3.1 x 7.4 cm and moderate to severe left hydroureteronephrosis, s/p anal stenosis dilation by Dr. Chicas 03/13, IR unable to
perform aspiration yesterday due to disappearing when she went prone, so likely not an abscess, more consistent with malignant ascites.
VSS, WBC 9.2
Plan:
1. Abdominal xrays ordered this AM show large likely small bowel air-fluid levels without free air. Findings could represent ileus. NO large bowel obstruction noted.
2. Resume clears.
3. Plan to hold off on flex sig today.
4. Continue to hold Eliquis for now.
5. Will consult medical oncology for their opinion.
6. Discussed above with Halina, her POA. I have notified medical team and oncology to update her today as well.
Subjective Data
Subjective Data
Date of Service: March 15, 2024
Patient states she has no nausea or vomiting. She had flatus the past two days but not today. She has not had a bowel movement for two days. She has some discomfort on her left abdomen.
Objective Data
-
Vital Signs
Temp Pulse Resp BP Pulse Ox
98.0 F 109 18 117/74 99
03/15/24 11:15 03/15/24 11:15 03/15/24 11:15 03/15/24 11:15 03/15/24 11:15
Intake & Output
03/14/24 03/15/24 03/16/24
06:59 06:59 06:59
Other:
Number of approximated MODERATE 3 2
amounts of urine
Lab Results
03/15/24 05:29
03/15/24 05:29
Physical Exam
-
General: No Acute Distress and AOx3
Abdomen: Soft, Distended and Tender (LUQ)
Skin: Warm and Dry
--- NOTE | 2024-03-15 13:05 | CON.ONC ---
Impression
Impression
Posterior cul-de-sac fluid possible seroma
Evidence of omental caking against the abdominal wall and bilateral malignant inguinal lymph nodes likely representing carcinomatosis
Dementia
History of rectal carcinoma 2001
Hyperlipidemia
Renal insufficiency with left hydro
Anemia likely chronic inflammation
Atrial fibrillation
Plan
Plan
CT reviewed with Ronal Gar
Patient understands the distribution of the findings on CAT scan if malignant is not typically for treatable for curative intent
She is anxious to to pursue biopsy to understand options were clearly
Will obtain CEA and Ca 125
IR for ultrasound-guided biopsy of the inguinal lymph node
Will check with IR with regarding need to hold of aspirin and Eliquis
Will discuss with POA
Patient History
History of Present Illness
88-year-old with past medical history for peptic ulcer disease, hyperlipidemia, hypertension, A-fib, coronary artery disease, rectal cancer presented to us with right lower abdominal pain for past few days. Send stated abdominal distention.
Patient stated she had formed bowel movement 3-4 times yesterday. Denies any bleeding yesterday. Denied nausea or vomiting or diarrhea. Patient was also complained of short of breath, orthopnea. Also complained of worsening bilateral lower
extremity edema. Patient denies any headache, dizziness, syncopal episode. Patient denies fever, chills, chest pain. Patient denies dysuria hematuria. Patient was evaluated by colorectal this morning. Patient was also evaluated by cardiology,
who added Farxiga daily, increase Lasix 20 mg to 40 mg, also changes metoprolol 50 to twice a day.
Past-Medical/Surgical History
Past Medical History
Past Medical History: Reports Other
Additional Past Medical History:
Peptic ulcer disease
Hypertension
Aortic insufficiency
A-fib
Coronary artery disease
Rectal cancer
Dementia
Past Surgical History: Reports Other
Additional Past Surgical History:
Cardiac bypass
Cardiac stent
Cholecystectomy
Tubal ligation
Flex sig and resection and closure of ileostomy
Robotic MRR with DLI
Inguinal hernia repair
Cataract surgery
Social History
Tobacco: Non-smoker
Alcohol: None
Drug: None
Living: With Family
Family History
Family History: Not pertinent
Patient Medication
�Medication �Instructions �Recorded �Confirmed �Last Taken �Type
aspirin 81 mg tablet,delayed 81 mg PO DAILY Blood clot 03/16/19 03/13/24 09/07/22 08:00 History
release (Adult Low Dose Aspirin) prevention/tx
ezetimibe 10 mg tablet 10 mg PO QPM High cholesterol 03/16/19 03/13/24 09/06/22 History
apixaban 2.5 mg tablet (Eliquis) 2.5 mg PO BID Blood clot 05/28/20 03/13/24 09/06/22 History
prevention/tx
furosemide 40 mg tablet 40 mg PO QPM Fluid 03/30/22 03/13/24 09/07/22 14:00 Rx
retention/Swelling #30 tabs
pravastatin 80 mg tablet 80 mg DAILY High Cholesterol 06/21/22 03/13/24 09/07/22 08:00 History
dapagliflozin propanediol 10 mg 10 mg PO DAILY Diabetes 03/13/24 03/13/24 Unknown History
tablet (Farxiga)
memantine 10 mg tablet 10 mg PO QPM Alzheimer 03/13/24 03/13/24 Unknown History
metoprolol succinate 50 mg 50 mg PO BID Heart 03/13/24 03/13/24 Unknown History
tablet,extended release 24 hr Disease/Condition
Active Medications
Generic Name Dose Route Start Last Admin
Trade Name Freq PRN Reason Stop Dose Admin
Aspirin 81 mg 03/14/24 08:00 03/15/24 11:35
Aspirin 81 Mg (Enteric Coated) Tablet PO 04/11/24 07:59 81 mg
DAILY JEMIMA Administration
Dapagliflozin 10 mg 03/14/24 08:00 03/15/24 11:35
Dapagliflozin (Farxiga) 10 Mg Tablet PO 04/11/24 07:59 10 mg
DAILY JEMIMA Administration
Dibucaine 0 applic 03/14/24 07:07
Dibucaine 1% (Ointment) Tube TOPICAL 04/11/24 07:59
TID PRN
perianal pain
Docusate Sodium 100 mg 03/14/24 20:00 03/15/24 11:35
Docusate Sodium 100 Mg Capsule PO 04/11/24 19:59 100 mg
BID JEMIMA Administration
Ezetimibe 10 mg 03/14/24 18:00 03/14/24 17:27
Ezetimibe (Zetia) 10 Mg Tablet PO 04/11/24 17:59 10 mg
QPM JEMIMA Administration
Memantine 10 mg 03/14/24 18:00 03/14/24 17:27
Memantine 10 Mg Tablet PO 04/11/24 17:59 10 mg
QPM JEMIMA Administration
Metoprolol Succinate 50 mg 03/14/24 08:00 03/15/24 11:36
Metoprolol 50 Mg Extended Release Tablet PO 04/11/24 07:59 50 mg
BID JEMIMA Administration
Polyethylene Glycol 17 grams 03/14/24 11:00 03/15/24 11:36
Polyethylene Glycol Powder 17 Grams Packet PO 04/11/24 10:59 17 grams
DAILY JEMIMA Administration
Pravastatin Sodium 80 mg 03/14/24 18:00 03/14/24 17:26
Pravastatin 40 Mg Tablet PO 04/11/24 17:59 80 mg
QPM JEMIMA Administration
Sodium Chloride 0 flush 03/14/24 02:00
Sodium Chloride 0.9% (Flush) Syringe IV 04/11/24 01:59
PER PROTOCOL JEMIMA
Review of Systems
-
Patient resting comfortably 10 point review of systems unremarkable other than those symptoms reviewed in the HPI
Physical Exam
-
Physical Exam
General: Well Developed, Well Nourished and No Apparent Distress
HEENT: NormoCephalic, Moist mucous membranes and Atraumatic
Respiratory: Decreased Breath Sounds
Cardiac: S1/S2 and Regular Rhythm; No Murmur or Rub
GI: Soft, Non Tender, Normal Bowel Sounds, Tender and Distended; No Organomegaly
Musculoskeletal: No Clubbing, No Cyanosis and No Edema palpable inguinal lymph node
Skin: No Rash
Neuro: Nonfocal/grossly intact
Psych: Calm
Labs
Lab Results
WBC 9.2 10^3/uL (4.8-10.8) 03/15/24 05:29
RBC 3.30 10^6/uL (4.20-5.40) L 03/15/24 05:29
Hgb 9.9 g/dL (12.0-16.0) L 03/15/24 05:29
Hct 30.1 % (37.0-47.0) L 03/15/24 05:29
MCV 91.2 fL (81.0-99.0) 03/15/24 05:29
MCH 30.0 pg (27.0-31.0) 03/15/24 05:29
MCHC 32.9 g/dL (33.0-37.0) L 03/15/24 05:29
RDW 14.7 % (11.5-14.5) H 03/15/24 05:29
Plt Count 278 10^3/uL (130-400) 03/15/24 05:29
MPV 10.6 fL (7.4-10.4) H 03/15/24 05:29
Abs Immat Gran (auto) 0.1 10^3/uL (0-0.05) H 03/13/24 12:58
Absolute Neuts (auto) 8.5 10^3/uL (1.4-6.5) H 03/13/24 12:58
Absolute Lymphs (auto) 0.6 10^3/uL (1.2-3.4) L 03/13/24 12:58
Absolute Monos (auto) 0.9 10^3/uL (0.1-0.6) H 03/13/24 12:58
Absolute Eos (auto) 0.1 10^3/uL (0-0.7) 03/13/24 12:58
Absolute Basos (auto) 0.0 10^3/uL (0-0.2) 03/13/24 12:58
Immature Gran % 0.5 % (0-0.5) 03/13/24 12:58
Neutrophils % 84.0 % (42.2-75.2) H 03/13/24 12:58
Lymphocytes % 5.5 % (20.5-51.1) L 03/13/24 12:58
Monocytes % 9.0 % (1.7-9.3) 03/13/24 12:58
Eosinophils % 0.6 % (0-6) 03/13/24 12:58
Basophils % 0.4 % (0-2) 03/13/24 12:58
Creatinine 1.5 mg/dL (0.6-1.0) H 03/15/24 05:29
Vital Signs
Vital Signs
Temp Pulse Resp BP Pulse Ox
98.0 F 109 18 117/74 99
03/15/24 11:15 03/15/24 11:15 03/15/24 11:15 03/15/24 11:15 03/15/24 11:15
--- NOTE | 2024-03-15 15:06 | W.PN.HOSP.TC ---
Today's Communication/Plan
-
IR consult for inguinal node biopsy
Assessment / Plan
Assessment / Plan
88-year-old female past medical history of rectal cancer status post robotic low anterior resection with ileostomy creation with subsequent reversal of ileostomy, anemia, diastolic heart failure, coronary artery disease status post stents,
paroxysmal atrial fibrillation on Eliquis, aortic insufficiency, essential hypertension, hyperlipidemia, peptic ulcer disease, GERD, right phrenic nerve palsy, presenting for abdominal pain and perianal pain with loose/bloody stools and sent in by
colorectal surgery. Patient saw Dr. Chicas earlier today and during examination he was unable to advance his finger past the anastomosis.
Lab work shows creatinine 1.3, cardiac BNP of 8000. Hemoglobin of 9.9 which is close to baseline.
Abdominal distention/questionable lower GI bleed/known history of colorectal CA with ileostomy and now post reversal
CT abdomen pelvis showed moderate to severe left hydroureteronephrosis without discrete obstruction.
There is postoperative changes in the rectum, loculated fluid within the posterior cul-de-sac in the pelvis measuring 5.5 x 3.1 x 7.4 cm which could represent postoperative seroma versus abscess. There is probable reactive ileus of small bowel
loops in the lower abdomen. Small left pleural effusion and small volume abdominal pelvic ascites.
-There is soft tissue omental nodularity predominantly throughout the left anterior abdomen and pelvis in keeping with peritoneal carcinomatosis. There is also abnormal and large partially necrotic bilateral inguinal lymphadenopathy suspicious for
metastatic disease after presumed fluid collection represent malignant ascites. May be underlying partial small bowel obstruction in addition to left-sided hydro ureteral nephrosis
-For interventional radiology aspiration of presumed seroma today/fluid analysis to be sent and cytology
Colorectal surgery recommended n.p.o., holding Eliquis. Presentation is more consistent with postoperative seroma. Colorectal will consult IR for drainage.
He may consider sigmoidoscopy to evaluate for bleeding/abnormal rectal exam. possibly for or Tuesday
Consult urology given moderate to severe hydronephrosis on the left side with INO. Hold ramipril.
-Seen by urology/they are holding off on any interventions awaiting colorectal
03/15
Interventional radiology consult, no enough fluid to be drained
Abdominal x-ray done today shows Large likely small bowel air-fluid levels without free air. Findings could represent ileus.
Colorectal surgery recommended no intervention and advance diet for clear liquid.
Hematology/oncology consulted, recommending inguinal node biopsy, IR reconsulted.
Discussed with daughter in the phone.
Acute on chronic diastolic CHF exacerbation. Patient follow [facility] cardiology.
-With shortness of breath and elevated proBNP/chest x-ray did not show any profound CHF or pulmonary edema
-Will benefit from IV diuresis
-Continue on metoprolol XL
-Most recent echo here noted a 53% EF mild MR/ No RWMA/moderate AR
-Consideration for cardiology consult here if refractory
Acute kidney injury
-Creatinine stable
Prior history of atrial fibrillation
-On Eliquis
-Rate controlled with metoprolol
-Holding Eliquis due to possible interventions
Abnormally elevated TSH
-In the setting of systemic illness qualifies for euthyroid sick with normal free T4
-Follow-up as outpatient
Prior surgical history includes CABG, PCI stents, cholecystectomy, robotic LAR with DLI May 2022
Anticipated Discharge: > 48 hours
Subjective/Interval History
-
Date of Service: March 15, 2024
Patient seen and examined at bedside, denies any chest pain, patient has mild shortness of breath, complaining of right lower abdominal pain, but no nausea, no vomiting.
Abdominal x-ray done today shows Large likely small bowel air-fluid levels without free air. Findings could represent ileus.
Colorectal surgery recommended no intervention and advance diet for clear liquid.
Hematology/oncology consulted, recommending inguinal node biopsy, IR reconsulted.
Discussed with daughter in the phone.
Objective Data
-
Labs:
Laboratory Results
03/15/24
05:29
WBC 9.2
Hgb 9.9 L
Hct 30.1 L
Plt Count 278
Sodium 133 L
Potassium 4.1
Chloride 102
Carbon Dioxide 24
BUN 33 H
Creatinine 1.5 H
Glucose 87
Calcium 8.6
Vital Signs:
Vital Signs
Temp Pulse Resp BP Pulse Ox
98.0 F 109 18 117/74 99
03/15/24 11:15 03/15/24 11:15 03/15/24 11:15 03/15/24 11:15 03/15/24 11:15
Physical Exam
-
General: Appears in Distress, Appears Chronically Ill and Cachectic
HEENT: Normocephalic, Atraumatic and Moist Mucous Membranes
Respiratory: Clear to Auscultation
Cardiac: Regular Rhythm and S1/S2; Negative Murmur, Rub or Gallop
GI: Normal Bowel Sounds and Tender; Negative Organomegaly
Rectal: Deferred by Provider
Musculoskeletal: No Clubbing, No Cyanosis and No Edema
Skin: Negative Rash
Neuro: Nonfocal/Grossly Intact
--- NOTE | 2024-03-15 16:03 | CM ---
Patient seen bedside.
IA completed with help of granddaughter.
Per patient daughter lives with her in a ranc[place] with 5 steps to enter.
No assistive devices at home.
PAtient current with [facility] per granddaughter.
patient does not drive.
PCP; Dr Cardenas
Pharmacy: [facility]
Plan: home with [facility].
[2024-03-15] MEDS: ZETIA 10 MG PO (17:48)
[2024-03-15] MEDS: PRAVACHOL 80 MG PO (17:48)
[2024-03-15] MEDS: NAMENDA 10 MG PO (17:48)
[2024-03-15] MEDS: TYLENOL 1000 MG PO (21:51)
[2024-03-16] VITALS (8 sets, daily range): BP systolic 96–145; BP diastolic 61–79
[2024-03-16 06:19] LABS: Hematocrit 30.3 % (37.0-47.0); Hemoglobin 10.1 g/dL (12.0-16.0); Mean Corp Hgb Conc. 33.3 g/dL (33.0-37.0); Mean Corpuscular Volume 89.9 fL (81.0-99.0); Mean Platelet Volume 10.2 fL (7.4-10.4); Platelet Count 273 10^3/uL (130-400); Red Blood Cell Count 3.37 10^6/uL (4.20-5.40); Red Cell Dist. Width 14.6 % (11.5-14.5); White Blood Cell Count 9.9 10^3/uL (4.8-10.8)
[2024-03-16 06:45] LABS: Blood Urea Nitrogen 33 mg/dl (7-17); Calcium 8.8 mg/dl (8.4-10.2); Carbon Dioxide 20 mmol/L (22-30); Chloride 103 mmol/L (98-107); Estimated Creatinine Clearance 19 ml/min; Glucose 95 mg/dl (70-99); Potassium 4.1 mmol/L (3.5-5.1); Sodium 132 mmol/L (135-145); eGFR 30.83
[2024-03-16 07:13] LABS: CEA 2.74 ng/ml
[2024-03-16 07:14] LABS: CA 125 434 U/mL (0-35)
--- NOTE | 2024-03-16 07:29 | W.PN.URO.CBU ---
Today's Communication / Plan
-
Rec: with satisfactory renal function overall, urgent intervention is not indicated; will await CRS and Oncology decisions to determine if alleviation of obstruction of left distal ureter is worth the potential morbidity
Assessment / Plan
-
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
satisfactory renal function
Diagnosis
-
Date of Service: March 16, 2024
-
Patient Diagnosis:
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
Objective
-
Vital Signs
Temp Pulse Resp BP Pulse Ox
97.6 F 100 18 128/72 97
03/16/24 07:00 03/16/24 07:00 03/16/24 07:00 03/16/24 07:00 03/16/24 07:00
Intake and Output
03/15/24 03/16/24 03/17/24
06:59 06:59 06:59
Intake Total 360 / 360
Balance 360 / 360
Intake:
Oral fluids 360 / 360
Other:
Number of approximated MODERATE 2 2
amounts of urine
Laboratory Results
03/16/24 05:52
03/16/24 05:52
Physical Exam
-
General - well developed, well nourished, no acute distress
Chest - clear bilaterally
Abdomen - soft, non-tender, positive bowel sounds, no CVAT, no incisional pain or distention
Genitalia - normal
Rectal - normal
Skin - warm & dry with no rash
Neuro - AOx3, no motor deficits
Extremities - no clubbing, no cyanosis, no edema
Incision - clean, dry
Dressing - clean, dry, intact
[2024-03-16] MEDS: TYLENOL 650 MG PO ×2 (10:01→20:56)
[2024-03-16] MEDS: ASPIR LOW (ENTERIC COATED) 81 MG PO (10:02)
[2024-03-16] MEDS: TOPROL XL 50 MG PO ×2 (10:02→20:53)
[2024-03-16] MEDS: FARXIGA 10 MG PO (10:02)
[2024-03-16] MEDS: COLACE 100 MG PO ×2 (10:03→20:53)
--- NOTE | 2024-03-16 10:04 | CM ---
Spoke with patient and daughter Radhika.
Patient would like Radhika added as a contact.
Radhika or Milton (granddaughter) will be driving patient home.
Radhika Garber [phone].
Plan:home with [facility] when stable.
--- NOTE | 2024-03-16 11:26 | PN.CDI ---
CDI
- -
CDI:
Physician Documentation Request
Admit Date: 03/13/24 21:53
Dear Doctor Rainer,
Please review the following and provide your response in the progress notes.
Clinical Indicators:
03/13: Pt admitted with Abdominal pain, Acute CHF, acute kidney injury
Sodium levels documented below:
Laboratory Tests
03/13/24 03/15/24 03/16/24
12:58 05:29 05:52
Sodium 132 L 133 L 132 L
Based on the above, could you clarify in the progress notes, the appropriate diagnosis, if significant, that supports the above abnormalities and additional evaluation, monitoring and/or treatment rendered:
Hyponatremia
insignificant abnormal lab values
Other
Use of terms such as suspected, likely, concern for, or probable (associated with a specific diagnosis that is being evaluated, monitored, or treated as if it exists) are acceptable and can be coded in the inpatient setting, when documented at the
time of discharge.
Thank you,
Kamryn Taylor RN, BSN
CDI Specialist
Available via [employer]
Please use your independent medical judgment in providing your response.
--- NOTE | 2024-03-16 12:13 | W.PN.CRS1 ---
Addendum entered and electronically signed by Rosa Oropeza PA-C 03/16/24 12:38:
I updated the patient's daughter, Halina, via phone.
Original Note:
Today's Communication / Plan
-
Pending IR guided lymph node biopsy
Holding off on flexible sigmoidoscopy; if the IR biopsies unrevealing, may need flex sig for biopsies
Will order SBFT due to persistent abdominal distention to rule out SBO; continue clears unless N/V
Assessment/Plan
-
88-year-old female with PMH of PUD, HLD, HTN, aortic insufficiency, A-fib, right phrenic nerve palsy, CAD (s/p coronary stents), and distal rectal cancer s/p robotic LAR with DLI and 05/2022 s/p DLI reversal 08/2022 (path showing positive LVI, tumor
cells in 11/11 LNs; plan at that time was to monitor with no adjuvant therapy or active surveillance); seen in office for about 1 month of intermittent rectal bleeding, worsening fecal incontinence, intermittent abdominal pains migrating from the
left to the right as well as worsening SOB for 1 week; was sent to ED for significant SOB and possible bowel obstruction due to anastomotic stenosis (able to pass tip of finger, about 1.5cm diameter). In the ED, afebrile, HR 90s to 100s,
normotensive. WBC 10.1, Hb 9.9 (prior from 1 year ago 11.2), Cr 1.3, BNP 8000, chest x-ray�WNL, CTAP showing moderate to severe left hydroureteronephrosis without discrete obstructing cause, loculated fluid within the posterior pelvis measuring 5 x
7 x 3 cm, possibly seroma versus abscess
Afebrile, heart rate 90-100, normotensive; ABD soft, mildly distended (slightly more distended than yesterday), minimally/mildly tender in lower quadrants, no R/G
� Worsening INO in setting of left hydronephrosis
-Recommend discussing with urology if decompression necessary
� Posterior pelvic fluid most likely ascites s/p IR attempt at drainage; no further indication
� Addendum to CT reporting concern for carcinomatosis, bilateral inguinal lymphadenopathy and likely malignant ascites
�Appreciate oncology; will consult IR for biopsy to confirm if metastatic recurrence of rectal cancer vs second primary
�Will hold off on flexible sigmoidoscopy and proceed with IR biopsy
�CEA 2.7, CA125 43.5
� Ok for clears; if N/V, recommend NPO; will order SBFT to rule out SBO
� Pain control, avoid narcotics if possible
� Hold Eliquis and AC; trend Hb, transfuse as needed
� Appreciate hospitalist
Subjective Data
Subjective Data
Date of Service: March 16, 2024
No overnight events. Per EMR, large BM last night.
Some right-sided abdominal pain, no perirectal pain.
Denies nausea/vomiting.
-flatus (unsure if flatus) +BMs +voiding
Objective Data
-
Vital Signs
Temp Pulse Resp BP Pulse Ox
97.7 F 96 15 110/64 95
03/16/24 10:40 03/16/24 11:48 03/16/24 11:48 03/16/24 11:48 03/16/24 11:41
Intake & Output
03/15/24 03/16/24 03/17/24
06:59 06:59 06:59
Intake Total 360 / 360
Balance 360 / 360
Intake:
Oral fluids 360 / 360
Other:
Number of approximated MODERATE 2 2
amounts of urine
Lab Results
03/16/24 05:52
03/16/24 05:52
Physical Exam
-
General: No Acute Distress and Other (Alert, oriented, forgetful of some details within the last 1 to 2 days)
HEENT: Grossly Normal
Abdomen: Soft, Distended (Mildly to moderately distended), Tender (Minimally to mildly TTP in the right mid abdomen), No Guarding and No Rebound
Skin: Warm and Dry
--- NOTE | 2024-03-16 12:44 | VNURNOTE ---
Home Health Liaison met with patient's daughter Radhika at 1130 to discuss [facility] nurse/therapy, visits, schedule and homebound status. Radhika is agreeable and understands that visits at home will be 2-3 x per week to assess and teach medical
management.
Radhika is aware that [facility] will contact them for start of care in 1-2 days after discharge from .
[facility] referral completed in [facility].
[2024-03-16] MEDS: MIRALAX PO (12:58)
--- NOTE | 2024-03-16 15:01 | W.PN.HOSP.TC ---
Today's Communication/Plan
-
Inguinal node biopsy today
Assessment / Plan
Assessment / Plan
88-year-old female past medical history of rectal cancer status post robotic low anterior resection with ileostomy creation with subsequent reversal of ileostomy, anemia, diastolic heart failure, coronary artery disease status post stents,
paroxysmal atrial fibrillation on Eliquis, aortic insufficiency, essential hypertension, hyperlipidemia, peptic ulcer disease, GERD, right phrenic nerve palsy, presenting for abdominal pain and perianal pain with loose/bloody stools and sent in by
colorectal surgery. Patient saw Dr. Chicas earlier today and during examination he was unable to advance his finger past the anastomosis.
Lab work shows creatinine 1.3, cardiac BNP of 8000. Hemoglobin of 9.9 which is close to baseline.
Abdominal distention/questionable lower GI bleed/known history of colorectal CA with ileostomy and now post reversal
CT abdomen pelvis showed moderate to severe left hydroureteronephrosis without discrete obstruction.
There is postoperative changes in the rectum, loculated fluid within the posterior cul-de-sac in the pelvis measuring 5.5 x 3.1 x 7.4 cm which could represent postoperative seroma versus abscess. There is probable reactive ileus of small bowel
loops in the lower abdomen. Small left pleural effusion and small volume abdominal pelvic ascites.
-There is soft tissue omental nodularity predominantly throughout the left anterior abdomen and pelvis in keeping with peritoneal carcinomatosis. There is also abnormal and large partially necrotic bilateral inguinal lymphadenopathy suspicious for
metastatic disease after presumed fluid collection represent malignant ascites. May be underlying partial small bowel obstruction in addition to left-sided hydro ureteral nephrosis
-For interventional radiology aspiration of presumed seroma today/fluid analysis to be sent and cytology
Colorectal surgery recommended n.p.o., holding Eliquis. Presentation is more consistent with postoperative seroma. Colorectal will consult IR for drainage.
He may consider sigmoidoscopy to evaluate for bleeding/abnormal rectal exam. possibly for or Tuesday
Consult urology given moderate to severe hydronephrosis on the left side with INO. Hold ramipril.
-Seen by urology/they are holding off on any interventions awaiting colorectal
03/15
Interventional radiology consult, no enough fluid to be drained
Abdominal x-ray done today shows Large likely small bowel air-fluid levels without free air. Findings could represent ileus.
Colorectal surgery recommended no intervention and advance diet for clear liquid.
Hematology/oncology consulted, recommending inguinal node biopsy, IR reconsulted.
Discussed with daughter in the phone.
03/16
Status post inguinal node biopsy today
Discussed with the family, regarding elevated CA125 up to 434
Acute on chronic diastolic CHF exacerbation. Patient follow [facility] cardiology.
-With shortness of breath and elevated proBNP/chest x-ray did not show any profound CHF or pulmonary edema
-Will benefit from IV diuresis
-Continue on metoprolol XL
-Most recent echo here noted a 53% EF mild MR/ No RWMA/moderate AR
-Consideration for cardiology consult here if refractory
Acute kidney injury
-Creatinine stable
Hyponatremia.
Stable
Continue to monitor
Anemia of chronic disease secondary to history of cancer
No evidence of bleeding
Hemoglobin still
Prior history of atrial fibrillation
-On Eliquis
-Rate controlled with metoprolol
-Holding Eliquis due to possible interventions-possible resume tomorrow
Abnormally elevated TSH
-In the setting of systemic illness qualifies for euthyroid sick with normal free T4
-Follow-up as outpatient
Prior surgical history includes CABG, PCI stents, cholecystectomy, robotic LAR with DLI May 2022
Anticipated Discharge: > 48 hours
Subjective/Interval History
-
Date of Service: March 16, 2024
Patient seen and examined at bedside.
No chest pain or shortness of breath.
Right chest tubes send spirometry.
Still complaining of right lower quadrant pain, advised to use Tylenol as needed.
Discussed with patient family at bedside and daughter on the phone.
Objective Data
-
Labs:
Laboratory Results
03/16/24
05:52
WBC 9.9
Hgb 10.1 L
Hct 30.3 L
Plt Count 273
Sodium 132 L
Potassium 4.1
Chloride 103
Carbon Dioxide 20 L
BUN 33 H
Creatinine 1.6 H
Glucose 95
Calcium 8.8
Vital Signs:
Vital Signs
Temp Pulse Resp BP Pulse Ox
97.7 F 96 15 110/64 95
03/16/24 10:40 03/16/24 11:48 03/16/24 11:48 03/16/24 11:48 03/16/24 14:29
I&O
03/15/24 03/16/24 03/17/24
06:59 06:59 06:59
Intake Total 360 / 360 270 / 270
Balance 360 / 360 270 / 270
Physical Exam
-
General: Appears in Distress, Appears Chronically Ill and Cachectic
HEENT: Normocephalic, Atraumatic and Moist Mucous Membranes
Respiratory: Clear to Auscultation
Cardiac: Regular Rhythm and S1/S2; Negative Murmur, Rub or Gallop
GI: Normal Bowel Sounds and Tender; Negative Organomegaly
Rectal: Deferred by Provider
Musculoskeletal: No Clubbing, No Cyanosis and No Edema
Skin: Negative Rash
Neuro: Nonfocal/Grossly Intact
[2024-03-16] MEDS: NAMENDA 10 MG PO (17:31)
[2024-03-16] MEDS: PRAVACHOL 80 MG PO (17:31)
[2024-03-16] MEDS: ZETIA 10 MG PO (17:31)
[2024-03-17] VITALS (7 sets, daily range): BP systolic 111–143; BP diastolic 59–92; PULSE 111–118; O2SAT 97; BMI 21.8
[2024-03-17] MEDS: TYLENOL 650 MG PO ×2 (05:48→16:53)
[2024-03-17 06:49] LABS: Hematocrit 33.1 % (37.0-47.0); Mean Corp Hgb Conc. 33.2 g/dL (33.0-37.0); Mean Corpuscular Hgb 30.1 pg (27.0-31.0); Mean Corpuscular Volume 90.4 fL (81.0-99.0); Mean Platelet Volume 10.2 fL (7.4-10.4); Platelet Count 283 10^3/uL (130-400); Red Blood Cell Count 3.66 10^6/uL (4.20-5.40); Red Cell Dist. Width 14.6 % (11.5-14.5); White Blood Cell Count 10.6 10^3/uL (4.8-10.8)
[2024-03-17] MEDS: NUPERCAINAL 1% OINTMENT 1 APPLIC TOPICAL (08:51)
[2024-03-17] MEDS: ASPIR LOW (ENTERIC COATED) 81 MG PO (08:52)
[2024-03-17] MEDS: MIRALAX 17 GRAMS PO (08:52)
[2024-03-17] MEDS: COLACE 100 MG PO ×2 (08:52→20:24)
[2024-03-17] MEDS: TOPROL XL 50 MG PO ×2 (08:52→20:24)
[2024-03-17] MEDS: FARXIGA 10 MG PO (08:52)
--- NOTE | 2024-03-17 14:59 | W.PN.CRS1 ---
Today's Communication / Plan
-
ADAT
For IR biopsy likely Tuesday
No surgical intervention indicated for now
Will follow peripherally
Assessment/Plan
-
88-year-old female with PMH of PUD, HLD, HTN, aortic insufficiency, A-fib, right phrenic nerve palsy, CAD (s/p coronary stents), and distal rectal cancer s/p robotic LAR with DLI and 05/2022 s/p DLI reversal 08/2022 (path showing positive LVI, tumor
cells in 11/11 LNs; plan at that time was to monitor with no adjuvant therapy or active surveillance); seen in office for about 1 month of intermittent rectal bleeding, worsening fecal incontinence, intermittent abdominal pains migrating from the
left to the right as well as worsening SOB for 1 week; was sent to ED for significant SOB and possible bowel obstruction due to anastomotic stenosis (able to pass tip of finger, about 1.5cm diameter). In the ED, afebrile, HR 90s to 100s,
normotensive. WBC 10.1, Hb 9.9 (prior from 1 year ago 11.2), Cr 1.3, BNP 8000, chest x-ray�WNL, CTAP showing moderate to severe left hydroureteronephrosis without discrete obstructing cause, loculated fluid within the posterior pelvis measuring 5 x
7 x 3 cm, possibly seroma versus abscess
Afebrile, heart rate 90-100, normotensive; ABD soft, mildly distended, no abd ttp but tenderness to the right groin lkely 2/2 lymphadenopathy
� Worsening INO in setting of left hydronephrosis
- Urology recs appreciated, no urgent intervention planned
� Posterior pelvic fluid most likely ascites s/p IR attempt at drainage; no further indication
� Addendum to CT reporting concern for carcinomatosis, bilateral inguinal lymphadenopathy and likely malignant ascites
� Appreciate oncology; will consult IR for biopsy to confirm if metastatic recurrence of rectal cancer vs second primary
� Will hold off on flexible sigmoidoscopy and proceed with IR biopsy
� CEA 2.7, CA125 43.5
� No obstruction, OK to ADAT
� Pain control, avoid narcotics if possible
� Hold Eliquis and AC; trend Hb, transfuse as needed
� Appreciate hospitalist
Subjective Data
Procedure
No complaints, denies n/v, pain controlled
Subjective Data
Date of Service: March 17, 2024
Objective Data
-
Vital Signs
Temp Pulse Resp BP Pulse Ox
97.4 F 95 18 113/68 95
03/17/24 11:00 03/17/24 11:00 03/17/24 11:00 03/17/24 11:00 03/17/24 12:37
Intake & Output
03/16/24 03/17/24 03/18/24
06:59 06:59 06:59
Intake Total 360 / 360 1300 / 1300
Balance 360 / 360 1300 / 1300
Intake:
Oral fluids 360 / 360 1300 / 1300
Other:
Number of approximated MODERATE 2 2
amounts of urine
How many times incontinent 2
MODERATE amount urine
How many times incontinent 2
SATURATED amount urine
Number of unmeasured liquid
stools
Rectum 1
Lab Results
03/17/24 05:57
03/16/24 05:52
Physical Exam
-
General: No Acute Distress
Abdomen: Soft, Distended (mild), Non Tender and Other (ttp at right inguinal area that corresponds to her lymphadenopathy)
--- NOTE | 2024-03-17 15:07 | W.PN.HOSP.TC ---
Today's Communication/Plan
-
Advance diet
Assessment / Plan
Assessment / Plan
88-year-old female past medical history of rectal cancer status post robotic low anterior resection with ileostomy creation with subsequent reversal of ileostomy, anemia, diastolic heart failure, coronary artery disease status post stents,
paroxysmal atrial fibrillation on Eliquis, aortic insufficiency, essential hypertension, hyperlipidemia, peptic ulcer disease, GERD, right phrenic nerve palsy, presenting for abdominal pain and perianal pain with loose/bloody stools and sent in by
colorectal surgery. Patient saw Dr. Chicas earlier today and during examination he was unable to advance his finger past the anastomosis.
Lab work shows creatinine 1.3, cardiac BNP of 8000. Hemoglobin of 9.9 which is close to baseline.
Abdominal distention/questionable lower GI bleed/known history of colorectal CA with ileostomy and now post reversal
CT abdomen pelvis showed moderate to severe left hydroureteronephrosis without discrete obstruction.
There is postoperative changes in the rectum, loculated fluid within the posterior cul-de-sac in the pelvis measuring 5.5 x 3.1 x 7.4 cm which could represent postoperative seroma versus abscess. There is probable reactive ileus of small bowel
loops in the lower abdomen. Small left pleural effusion and small volume abdominal pelvic ascites.
-There is soft tissue omental nodularity predominantly throughout the left anterior abdomen and pelvis in keeping with peritoneal carcinomatosis. There is also abnormal and large partially necrotic bilateral inguinal lymphadenopathy suspicious for
metastatic disease after presumed fluid collection represent malignant ascites. May be underlying partial small bowel obstruction in addition to left-sided hydro ureteral nephrosis
-For interventional radiology aspiration of presumed seroma today/fluid analysis to be sent and cytology
Colorectal surgery recommended n.p.o., holding Eliquis. Presentation is more consistent with postoperative seroma. Colorectal will consult IR for drainage.
He may consider sigmoidoscopy to evaluate for bleeding/abnormal rectal exam. possibly for or Tuesday
Consult urology given moderate to severe hydronephrosis on the left side with INO. Hold ramipril.
-Seen by urology/they are holding off on any interventions awaiting colorectal
03/15
Interventional radiology consult, no enough fluid to be drained
Abdominal x-ray done today shows Large likely small bowel air-fluid levels without free air. Findings could represent ileus.
Colorectal surgery recommended no intervention and advance diet for clear liquid.
Hematology/oncology consulted, recommending inguinal node biopsy, IR reconsulted.
Discussed with daughter in the phone.
03/16
Status post inguinal node biopsy today
Discussed with the family, regarding elevated CA125 up to 434
03/17
X-ray shows no evidence for small bowel obstruction.
Advance diet to mechanical soft diet and added Ensure supplement
Acute on chronic diastolic CHF exacerbation. Patient follow [facility] cardiology.
-With shortness of breath and elevated proBNP/chest x-ray did not show any profound CHF or pulmonary edema
-Will benefit from IV diuresis
-Continue on metoprolol XL
-Most recent echo here noted a 53% EF mild MR/ No RWMA/moderate AR
-Consideration for cardiology consult here if refractory
Acute kidney injury
-Creatinine stable
Hyponatremia.
Stable
Continue to monitor
Anemia of chronic disease secondary to history of cancer
No evidence of bleeding
Hemoglobin still
Prior history of atrial fibrillation
-On Eliquis
-Rate controlled with metoprolol
-Holding Eliquis due to possible interventions-possible resume tomorrow
Abnormally elevated TSH
-In the setting of systemic illness qualifies for euthyroid sick with normal free T4
-Follow-up as outpatient
Prior surgical history includes CABG, PCI stents, cholecystectomy, robotic LAR with DLI May 2022
Anticipated Discharge: 24 - 48 hours
Subjective/Interval History
-
Date of Service: March 17, 2024
Patient seen and examined at bedside, denies any chest pain or shortness of breath, still with right lower quadrant abdominal pain, no nausea, no vomiting, no diarrhea or constipation.
Tolerating clear liquid diet will advance to soft diet.
Adding Ensure.
Objective Data
-
Labs:
Laboratory Results
03/17/24
05:57
WBC 10.6
Hgb 11.0 L
Hct 33.1 L
Plt Count 283
Vital Signs:
Vital Signs
Temp Pulse Resp BP Pulse Ox
97.4 F 95 18 113/68 95
03/17/24 11:00 03/17/24 11:00 03/17/24 11:00 03/17/24 11:00 03/17/24 12:37
I&O
03/16/24 03/17/24 03/18/24
06:59 06:59 06:59
Intake Total 360 / 360 1300 / 1300
Balance 360 / 360 1300 / 1300
Physical Exam
-
General: Appears in Distress, Appears Chronically Ill and Cachectic
HEENT: Normocephalic, Atraumatic and Moist Mucous Membranes
Respiratory: Clear to Auscultation
Cardiac: Regular Rhythm and S1/S2; Negative Murmur, Rub or Gallop
GI: Normal Bowel Sounds and Tender; Negative Organomegaly
Rectal: Deferred by Provider
Musculoskeletal: No Clubbing, No Cyanosis and No Edema
Skin: Negative Rash
Neuro: Nonfocal/Grossly Intact
[2024-03-17] MEDS: PRAVACHOL 80 MG PO (16:53)
[2024-03-17] MEDS: ZETIA 10 MG PO (16:54)
[2024-03-17] MEDS: NAMENDA 10 MG PO (16:54)
[2024-03-18] MEDS: TYLENOL 650 MG PO ×2 (01:53→21:39)
[2024-03-18 03:09] VITALS: BP 116/54
[2024-03-18 06:00] VITALS: BMI 22.2
[2024-03-18 06:02] LABS: Urine Albumin Trace (Neg - Trace); Urine Bilirubin Negative (Negative); Urine Character Clear (Clear); Urine Color Yellow; Urine Glucose 1+ (Negative); Urine Ketone Negative (Negative); Urine Leukocyte Negative (Negative); Urine Nitrite Negative (Negative); Urine Occult Blood Negative (Negative); Urine Specific Gravity 1.015 (<1.030); Urine Urobilinogen Negative (Neg - 1+)
--- NOTE | 2024-03-18 06:55 | PTCARENOTE ---
Patient having difficulty urinating. Bladder scan at 2230 was 300 cc. Patient began c/o lower back pain. Rechecked bladder scan at 0200 and volume was 391 cc. Order for straight cath. Output 400 cc, PVR 0 cc. Patient DTV at 0830 am.
[2024-03-18 07:00] VITALS: BP 170/104
[2024-03-18 07:32] LABS: Hematocrit 31.4 % (37.0-47.0); Hemoglobin 10.7 g/dL (12.0-16.0); Mean Corp Hgb Conc. 34.1 g/dL (33.0-37.0); Mean Corpuscular Hgb 29.9 pg (27.0-31.0); Mean Corpuscular Volume 87.7 fL (81.0-99.0); Mean Platelet Volume 10.4 fL (7.4-10.4); Platelet Count 245 10^3/uL (130-400); Red Blood Cell Count 3.58 10^6/uL (4.20-5.40); Red Cell Dist. Width 14.1 % (11.5-14.5); White Blood Cell Count 9.9 10^3/uL (4.8-10.8)
[2024-03-18 07:54] LABS: Blood Urea Nitrogen 38 mg/dl (7-17); Carbon Dioxide 19 mmol/L (22-30); Chloride 102 mmol/L (98-107); Estimated Creatinine Clearance 18 ml/min; Glucose 97 mg/dl (70-99); Potassium 3.8 mmol/L (3.5-5.1); Sodium 131 mmol/L (135-145); eGFR 28.67
--- NOTE | 2024-03-18 09:49 | W.PN.HOSP.TC ---
Today's Communication/Plan
-
INO workup
monitor diet tolerance
OT eval
await Pathology from LN [facility]
resume Eliquis
Assessment / Plan
Assessment / Plan
88-year-old female past medical history of rectal cancer status post robotic low anterior resection with ileostomy creation with subsequent reversal of ileostomy, anemia, diastolic heart failure, coronary artery disease status post stents,
paroxysmal atrial fibrillation on Eliquis, aortic insufficiency, essential hypertension, hyperlipidemia, peptic ulcer disease, GERD, right phrenic nerve palsy, presenting for abdominal pain and perianal pain with loose/bloody stools and sent in by
colorectal surgery. Patient saw Dr. Chicas earlier today and during examination he was unable to advance his finger past the anastomosis.
Lab work shows creatinine 1.3, cardiac BNP of 8000. Hemoglobin of 9.9 which is close to baseline.
Abdominal distention/questionable lower GI bleed/known history of colorectal CA with ileostomy and now post reversal
CT abdomen pelvis showed moderate to severe left hydroureteronephrosis without discrete obstruction.
- There is postoperative changes in the rectum, loculated fluid within the posterior cul-de-sac in the pelvis measuring 5.5 x 3.1 x 7.4 cm which could represent postoperative seroma versus abscess. There is probable reactive ileus of small bowel
loops in the lower abdomen. Small left pleural effusion and small volume abdominal pelvic ascites.
- There is soft tissue omental nodularity predominantly throughout the left anterior abdomen and pelvis in keeping with peritoneal carcinomatosis. There is also abnormal and large partially necrotic bilateral inguinal lymphadenopathy suspicious for
metastatic disease after presumed fluid collection represent malignant ascites. May be underlying partial small bowel obstruction in addition to left-sided hydro ureteral nephrosis
- For interventional radiology aspiration of presumed seroma today/fluid analysis to be sent and cytology
Colorectal surgery recommended n.p.o., holding Eliquis. Presentation is more consistent with postoperative seroma. Colorectal will consult IR for drainage.
- He may consider sigmoidoscopy to evaluate for bleeding/abnormal rectal exam. possibly for or Tuesday
Consult urology given moderate to severe hydronephrosis on the left side with INO. Hold ramipril.
- Seen by urology/they are holding off on any interventions
03/15
Interventional radiology consult, no enough fluid to be drained
Abdominal x-ray done today shows Large likely small bowel air-fluid levels without free air. Findings could represent ileus.
Colorectal surgery recommended no intervention and advance diet for clear liquid.
Hematology/oncology consulted, recommending inguinal node biopsy, IR reconsulted.
Discussed with daughter in the phone.
03/16
Status post inguinal node biopsy today
Discussed with the family, regarding elevated CA125 up to 434
03/17
X-ray shows no evidence for small bowel obstruction.
Advance diet to mechanical soft diet and added Ensure supplement
GS following
Acute on chronic diastolic CHF exacerbation. Patient follow [facility] cardiology.
-With shortness of breath and elevated proBNP/chest x-ray did not show any profound CHF or pulmonary edema
-s/p 1 dose IV Lasix
-Continue on metoprolol XL
-Most recent echo here noted a 53% EF mild MR/ No RWMA/moderate AR
Acute kidney injury
- Creatinine rising
- check Urine lytes, bladders scans
Hyponatremia.
Stable
Continue to monitor
Anemia of chronic disease secondary to history of cancer
No evidence of bleeding
Hemoglobin stable
Prior history of atrial fibrillation
-On Eliquis - resume now since clear of procedures
-Rate controlled with metoprolol
-Holding Eliquis due to possible interventions-possible resume tomorrow
Abnormally elevated TSH
-In the setting of systemic illness qualifies for euthyroid sick with normal free T4
-Follow-up as outpatient
Prior surgical history includes CABG, PCI stents, cholecystectomy, robotic LAR with DLI May 2022
Anticipated Discharge: > 48 hours
Subjective/Interval History
-
Date of Service: March 18, 2024
tolerating pain well - only using Tylenol
tolerating diet
Objective Data
-
Labs:
Laboratory Results
03/18/24
06:22
WBC 9.9
Hgb 10.7 L
Hct 31.4 L
Plt Count 245
Sodium 131 L
Potassium 3.8
Chloride 102
Carbon Dioxide 19 L
BUN 38 H
Creatinine 1.7 H
Glucose 97
Calcium 9.0
Vital Signs:
Vital Signs
Temp Pulse Resp BP Pulse Ox
97.8 F 100 24 170/104 98
03/18/24 07:00 03/18/24 07:00 03/18/24 07:00 03/18/24 07:00 03/18/24 07:00
I&O
03/17/24 03/18/24 03/19/24
06:59 06:59 06:59
Intake Total 1300 / 1300 1140 / 1140
Output Total 400 / 400
Balance 1300 / 1300 740 / 740
Physical Exam
-
General: No Apparent Distress
HEENT: Normocephalic and Atraumatic
Respiratory: Negative Wheezes
Cardiac: Regular Rhythm
Genito-urinary: No Costovertebral Tender
Musculoskeletal: No Edema
Neuro: AO x 3
Hematologic / Lymphatic: No Lymphadenopathy
Psych: Calm
Data Reviewed
-
Total Time Spent with Patient (in minutes): 45
Labs: Labs Reviewed by me
[2024-03-18] MEDS: COLACE PO (10:10)
[2024-03-18] MEDS: ASPIR LOW (ENTERIC COATED) 81 MG PO (10:10)
[2024-03-18] MEDS: TOPROL XL 50 MG PO ×2 (10:10→20:25)
[2024-03-18] MEDS: FARXIGA 10 MG PO (10:10)
[2024-03-18] MEDS: MIRALAX PO (10:10)
[2024-03-18] MEDS: MIRALAX 17 GRAMS PO (10:16)
[2024-03-18] MEDS: COLACE 100 MG PO ×2 (10:16→20:25)
[2024-03-18 11:30] VITALS: BP 127/68
[2024-03-18 15:19] VITALS: BP 133/68
[2024-03-18 16:07] LABS: Urine Sodium 7 mmol/L (30-90)
[2024-03-18] MEDS: ZETIA 10 MG PO (18:00)
[2024-03-18] MEDS: NAMENDA 10 MG PO (18:00)
[2024-03-18] MEDS: PRAVACHOL 80 MG PO (18:00)
[2024-03-18] MEDS: SODIUM BICARBONATE 1150 MEQ IV (18:00)
[2024-03-18 19:45] VITALS: BP 123/69
[2024-03-18] MEDS: ELIQUIS 2.5 MG PO (20:25)
[2024-03-18 23:43] VITALS: BP 117/65
[2024-03-19] VITALS (8 sets, daily range): BP systolic 109–151; BP diastolic 59–84; PULSE 89; BMI 22.6
[2024-03-19] MEDS: TYLENOL 650 MG PO ×3 (04:42→22:48)
--- NOTE | 2024-03-19 05:00 | PTCARENOTE ---
Pt has been able to void in bathroom, but c/o abd pain. Bladder scan performed after void and showed 198 mLs PVR. Pt medicated with tylenol.
[2024-03-19 08:18] LABS: Hematocrit 28.4 % (37.0-47.0); Hemoglobin 9.7 g/dL (12.0-16.0); Mean Corp Hgb Conc. 34.2 g/dL (33.0-37.0); Mean Corpuscular Volume 87.9 fL (81.0-99.0); Mean Platelet Volume 10.4 fL (7.4-10.4); Platelet Count 241 10^3/uL (130-400); Red Blood Cell Count 3.23 10^6/uL (4.20-5.40); Red Cell Dist. Width 14.3 % (11.5-14.5); White Blood Cell Count 10.7 10^3/uL (4.8-10.8)
[2024-03-19 08:43] LABS: Blood Urea Nitrogen 35 mg/dl (7-17); Calcium 8.2 mg/dl (8.4-10.2); Carbon Dioxide 29 mmol/L (22-30); Estimated Creatinine Clearance 21 ml/min; Glucose 90 mg/dl (70-99); Potassium 3.6 mmol/L (3.5-5.1); Sodium 129 mmol/L (135-145); eGFR 33.31
[2024-03-19 09:20] LABS: Chloride 96 mmol/L (98-107)
[2024-03-19] MEDS: FARXIGA 10 MG PO (10:23)
[2024-03-19] MEDS: TOPROL XL 50 MG PO ×2 (10:24→19:31)
[2024-03-19] MEDS: ASPIR LOW (ENTERIC COATED) 81 MG PO (10:24)
[2024-03-19] MEDS: MIRALAX PO ×2 (10:25→10:28)
[2024-03-19] MEDS: COLACE PO ×2 (10:25→10:27)
[2024-03-19] MEDS: ELIQUIS 2.5 MG PO ×2 (10:30→19:30)
--- NOTE | 2024-03-19 13:43 | W.PN.CRS1 ---
Today's Communication / Plan
-
Await biopsy results
Assessment/Plan
-
88-year-old female with PMH of PUD, HLD, HTN, aortic insufficiency, A-fib, right phrenic nerve palsy, CAD (s/p coronary stents), and distal rectal cancer s/p robotic LAR with DLI and 05/2022 s/p DLI reversal 08/2022 (path showing positive LVI, tumor
cells in 11/11 LNs; plan at that time was to monitor with no adjuvant therapy or active surveillance); seen in office for about 1 month of intermittent rectal bleeding, worsening fecal incontinence, intermittent abdominal pains migrating from the
left to the right as well as worsening SOB for 1 week; was sent to ED for significant SOB and possible bowel obstruction due to anastomotic stenosis (able to pass tip of finger, about 1.5cm diameter). In the ED, afebrile, HR 90s to 100s,
normotensive. WBC 10.1, Hb 9.9 (prior from 1 year ago 11.2), Cr 1.3, BNP 8000, chest x-ray�WNL, CTAP showing moderate to severe left hydroureteronephrosis without discrete obstructing cause, loculated fluid within the posterior pelvis measuring 5 x
7 x 3 cm, possibly seroma versus abscess
WBC 10.7. Vitals normal.
� Creatinine slightly improving, 1.5 from 1.7. No plans for percutaneous nephrostomy tube per urology.
� Posterior pelvic fluid most likely ascites s/p IR attempt at drainage; no further indication
� Addendum to CT reporting concern for carcinomatosis, bilateral inguinal lymphadenopathy and likely malignant ascites
� Appreciate oncology. IR biopsy results are pending.
� CEA 2.7, CA125 43.5
� No obstruction, OK to ADAT
� Pain control, avoid narcotics if possible
� Eliquis restarted 03/18
� Appreciate hospitalist
- Updated daughter Halina via phone
Subjective Data
Procedure
No complaints, denies n/v, pain controlled
Subjective Data
Date of Service: March 19, 2024
Patient states she had no issues overnight. She denies pain at rest but does have abdominal tenderness when touched. She states she is having bowel movements. She denies any blood in her bowel movements.
Objective Data
-
Vital Signs
Temp Pulse Resp BP Pulse Ox
97.5 F 92 18 120/59 96
03/19/24 11:09 03/19/24 11:09 03/19/24 11:09 03/19/24 11:09 03/19/24 11:09
Intake & Output
03/18/24 03/19/24 03/20/24
06:59 06:59 06:59
Intake Total 1140 / 1140 840 / 840
Output Total 400 / 400 250 / 250
Balance 740 / 740 590 / 590
Intake:
Oral fluids 1140 / 1140
IV fluids (Total) 840 / 840
Output:
Straight cath output 400 / 400 250 / 250
Other:
Number of approximated SMALL 1
amounts of urine
Number of approximated MODERATE 2
amounts of urine
Number of approximated LARGE 2
amounts of urine
How many times incontinent 3
MODERATE amount urine
How many times incontinent 1
SATURATED amount urine
Lab Results
03/19/24 07:25
03/19/24 07:25
Physical Exam
-
General: No Acute Distress
Abdomen: Soft, Distended (Mild) and Tender (Right lower quadrant and left-sided mild to moderate tenderness)
Skin: Warm and Dry
--- NOTE | 2024-03-19 13:46 | PTCARENOTE ---
Patient with large liquidy loose stool earlier today. Patient verbalizes she also had multiple loose stools over the weekend. Patient refuses Imodium at this time.
--- NOTE | 2024-03-19 13:55 | W.PN.HOSP.TC ---
Today's Communication/Plan
-
await LN biopsy report
cdiff neg
symptomatic care for diarrhea
hold stool softener
possible d/c tomorrow
Assessment / Plan
Assessment / Plan
CT a/p
1. Moderate to severe left hydroureteronephrosis without a discrete obstructing cause identified.
2. Postoperative changes of the rectum. There is loculated fluid within the posterior cul-de-sac in the pelvis measuring up to 5.5 x 3.1 x 7.4 cm. This may represent postoperative seroma versus abscess.
3. Probable reactive ileus of small bowel loops in the lower abdomen.
4. Small left pleural effusion and small volume abdominopelvic ascites.
Additional findings: There is soft tissue omental nodularity predominantly throughout the left anterior abdomen/pelvis, in keeping with peritoneal carcinomatosis. There is abnormal enlarged/partially necrotic bilateral inguinal lymphadenopathy,
suspicious for metastatic disease. The described pelvic fluid collection and ascites may represent malignant ascites. Given the omental disease, the prominent small bowel loops throughout the abdomen may be in part related to partial bowel
obstruction. Progress films recommended. Additionally the left-sided hydroureteronephrosis may be secondary to malignant left-sided retroperitoneal lymphadenopathy suspected at the L4-5 level (series 201, image 39), below which the left ureter is
not well visualized and likely decompressed.

1. Suspected recurrence of rectal cancer versus new primary with peritoneal carcinomatosis
-As mentioned above CT abdomen pelvis questioning soft tissue nodularity in the left anterior abdomen/pelvis in keeping with peritoneal carcinomatosis.
-Bilateral necrotic inguinal lymphadenopathy also visible and suspected metastatic disease.
-Lymph node biopsy 03/16 pathology report of which is pending
-CEA 2.7, CA125 43.5
-Oncology has evaluated the patient and plan for patient to follow-up in office with further steps decided based on biopsy report
2. Ascites
-Initial CT abdomen pelvis reported seroma in pelvis likely felt to be an ascites as resolved with body position change during IRAD drainage attempt.
-No further intervention will be required as likely malignant in nature until proven otherwise
-Patient may require intermittent paracentesis if have significant distention/pain
3. Colonic obstruction -ruled out
-Patient was initially sent from colorectal surgery office for unable to pass finger on JIM
-Abdominal x-ray was suggestive of possible ileus
-CTAP did not show any overt obstruction at site in question
-Follow-up small bowel follow-through study did not show any obstruction either
-Patient to be started on low acidity diet and has been tolerating without any problem
4. Diarrhea
-Acuity unknown but patient with significant stool incontinence from it
-No recent antibiotic exposure
-C-diff neg.
-hold miralax/docusate
-Imodium/cholestyramine ordered for symptomatic care
5, acute on chronic diastolic congestive heart failure
-Patient was given 1 dose of IV Lasix in ER for some shortness of breath/elevated proBNP
-Currently off of oral Lasix, will resume once diarrhea better
6. INO on suspected CKD
-Last known creatinine of 0.8 in January 13.
-Lasix has been held and creatinine trending down, 1.5 today
-May have component of CKD stage IIIa
7. Left severe hydrouretero nephrosis
-Urology evaluated and no intervention recommended at this point
-Nephrostomy tube discussed although with patient advanced age and overall clinical condition not recommended either.
8. Hyponatremia.
-suspecting mild hypovolemic component with ongoing diarrrhea
-Urine Na 7, urine osm
Anemia of chronic disease secondary to history of cancer
Atrial fibrillation - resumed back on eliquis
CAD/CABG, PCI stents
cholecystectomy
robotic LAR with DLI May 2022
DVT PPX - eliquis
Full code
Care plan discussed with urology/colorectal surgery/oncology
daughter Halina updated over the phone
Total time spent : 53 mins
I personally saw and examined the patient.
I have reviewed all diagnostic interpretations and treatment plans as written.
Time includes patient management by me, time spent at the patients bedside, time to review lab and imaging results, discussing patient care, documentation in the medical record, and time spent with the family or caregiver and discussing care plan
with RN/Consultants.
Anticipated Discharge: Within 24 hours
Subjective/Interval History
-
Date of Service: March 19, 2024
Complaining some lower abdominal discomfort
Ongoing stool incontinence/diarrhea
No nausea or vomiting
Objective Data
-
Labs:
Laboratory Results
03/19/24
07:25
WBC 10.7
Hgb 9.7 L
Hct 28.4 L
Plt Count 241
Sodium 129 L
Potassium 3.6
Chloride 96 L
Carbon Dioxide 29
BUN 35 H
Creatinine 1.5 H
Glucose 90
Calcium 8.2 L
Vital Signs:
Vital Signs
Temp Pulse Resp BP Pulse Ox
97.5 F 92 18 120/59 96
03/19/24 11:09 03/19/24 11:09 03/19/24 11:09 03/19/24 11:09 03/19/24 11:09
I&O
03/18/24 03/19/24 03/20/24
06:59 06:59 06:59
Intake Total 1140 / 1140 840 / 840
Output Total 400 / 400 250 / 250
Balance 740 / 740 590 / 590
Review of Systems
-
Unable to obtain full review of systems at this time due to: Dementia
Physical Exam
-
General: Comfortable
HEENT: Negative Oxygen
Respiratory: Clear to Auscultation
Cardiac: Regular Rhythm and S1/S2; Negative Murmur or Rub
GI: Soft, Nondistended and Tender
Musculoskeletal: No Edema
Neuro: Awake, Alert, Oriented, No Motor Deficits and Nonfocal/Grossly Intact
Psych: Calm
[2024-03-19] MEDS: IMODIUM 2 MG PO (14:01)
[2024-03-19] MEDS: QUESTRAN 4 GRAM PO (15:08)
[2024-03-19] MEDS: NAMENDA 10 MG PO (18:31)
[2024-03-19] MEDS: ZETIA 10 MG PO (18:31)
[2024-03-19] MEDS: PRAVACHOL 80 MG PO (18:33)
[2024-03-20 06:00] VITALS: BMI 22.8
[2024-03-20 07:21] VITALS: BP 142/74
--- NOTE | 2024-03-20 08:32 | W.PN.HOSP.TC ---
Addendum entered and electronically signed by Donal Apodaca MD 03/21/24 07:48:
Adjust diagnosis:
Hydroureteronephrosis without obstruction
Original Note:
Today's Communication/Plan
-
check stool for noro/ova/culture
discharge planning for home
Assessment / Plan
Assessment / Plan
CT a/p
1. Moderate to severe left hydroureteronephrosis without a discrete obstructing cause identified.
2. Postoperative changes of the rectum. There is loculated fluid within the posterior cul-de-sac in the pelvis measuring up to 5.5 x 3.1 x 7.4 cm. This may represent postoperative seroma versus abscess.
3. Probable reactive ileus of small bowel loops in the lower abdomen.
4. Small left pleural effusion and small volume abdominopelvic ascites.
Additional findings: There is soft tissue omental nodularity predominantly throughout the left anterior abdomen/pelvis, in keeping with peritoneal carcinomatosis. There is abnormal enlarged/partially necrotic bilateral inguinal lymphadenopathy,
suspicious for metastatic disease. The described pelvic fluid collection and ascites may represent malignant ascites. Given the omental disease, the prominent small bowel loops throughout the abdomen may be in part related to partial bowel
obstruction. Progress films recommended. Additionally the left-sided hydroureteronephrosis may be secondary to malignant left-sided retroperitoneal lymphadenopathy suspected at the L4-5 level (series 201, image 39), below which the left ureter is
not well visualized and likely decompressed.

1. Suspected recurrence of rectal cancer versus new primary with peritoneal carcinomatosis
-As mentioned above CT abdomen pelvis questioning soft tissue nodularity in the left anterior abdomen/pelvis in keeping with peritoneal carcinomatosis.
-Bilateral necrotic inguinal lymphadenopathy also visible and suspected metastatic disease.
-Lymph node biopsy 03/16 pathology report of which is pending
-CEA 2.7, CA125 43.5
-Oncology has evaluated the patient and plan for patient to follow-up in office with further steps decided based on biopsy report
2. Ascites
-Initial CT abdomen pelvis reported seroma in pelvis likely felt to be an ascites as resolved with body position change during IRAD drainage attempt.
-No further intervention will be required as likely malignant in nature until proven otherwise
-Patient may require intermittent paracentesis if have significant distention/pain
3. Colonic obstruction -ruled out
-Patient was initially sent from colorectal surgery office for unable to pass finger on JIM
-Abdominal x-ray was suggestive of possible ileus
-CT AP did not show any overt obstruction at site in question
-Follow-up small bowel follow-through study did not show any obstruction either
-Patient started on reg diet and has been tolerating without any problem
4. Diarrhea
-Acuity unknown but patient with significant stool incontinence from it
-No recent antibiotic exposure
-C-diff neg. check norovirus/ova/stool culture
-hold miralax/docusate
-CRS recommended against anti-motility and bulkin agent as concern of narrowing of internal anastomosis.
-Symptoms could be related to peritoneal carcinomatosis.
5, acute on chronic diastolic congestive heart failure
-Patient was given 1 dose of IV Lasix in ER for some shortness of breath/elevated proBNP
-Currently off of oral Lasix, will resume once diarrhea better
6. INO on suspected CKD
-Last known creatinine of 0.8 in January 13.
-Lasix has been held and creatinine trending down, 1.5 today
-May have component of CKD stage IIIa
7. Left severe hydrouretero nephrosis
-Urology evaluated and no intervention recommended at this point
-Nephrostomy tube discussed although with patient advanced age and overall clinical condition not recommended either.
8. Hyponatremia.
-suspecting mild hypovolemic component with ongoing diarrrhea
-Urine Na 7, urine osm
Anemia of chronic disease secondary to history of cancer
Atrial fibrillation - resumed back on eliquis
CAD/CABG, PCI stents
cholecystectomy
robotic LAR with DLI May 2022
DVT PPX - eliquis
Full code
03/19 daughter Halina updated over the phone
Anticipated Discharge: Today
Subjective/Interval History
-
Date of Service: March 20, 2024
ongoing some abd pain and mild nausea
still have diarrhea and some stool incontinence
no fever overnight
Objective Data
-
Vital Signs:
Vital Signs
Temp Pulse Resp BP Pulse Ox
97.5 F 96 20 142/74 96
03/20/24 07:21 03/20/24 07:21 03/20/24 07:21 03/20/24 07:21 03/20/24 07:21
I&O
03/19/24 03/20/24 03/21/24
06:59 06:59 06:59
Intake Total 840 / 840 480 / 480
Output Total 250 / 250
Balance 590 / 590 480 / 480
Review of Systems
-
Respiratory: Reports No Symptoms
Cardiac: Reports No Symptoms
Abdomen/GI: Reports Abdominal Pain, Nausea and Diarrhea
Physical Exam
-
General: Comfortable
HEENT: Negative Oxygen
Respiratory: Clear to Auscultation
Cardiac: Regular Rhythm and S1/S2; Negative Murmur or Rub
GI: Soft, Nondistended and Tender
Musculoskeletal: No Edema
Neuro: Awake, Alert, Oriented, No Motor Deficits and Nonfocal/Grossly Intact
Psych: Calm
[2024-03-20] MEDS: TOPROL XL 50 MG PO (08:58)
[2024-03-20] MEDS: FARXIGA 10 MG PO (08:58)
[2024-03-20] MEDS: ASPIR LOW (ENTERIC COATED) 81 MG PO (08:59)
[2024-03-20] MEDS: TYLENOL 650 MG PO (09:01)
[2024-03-20] MEDS: ELIQUIS 2.5 MG PO (09:01)
[2024-03-20] MEDS: QUESTRAN PO (09:02)
--- NOTE | 2024-03-20 11:23 | CM ---
Patient seen with son, inquiring if she will be discharged today. IMM reviewed, signed, placed in chart. CM will updated [facility] on discharge status. CM will continue to follow for discharge planning needs.
Plan; home with [facility], son to provide transportation home.
--- NOTE | 2024-03-20 12:06 | PN.CDI ---
CDI
- -
CDI:
Physician Documentation Request
Admit Date: 03/13/24 21:53
Dear Doctor Paulie,
Please review the following and provide your response in the progress notes.
Clinical Indicators:
03/13 Pt admitted with Abd. pain, rectal cancer
03/13 CT Abd/Pelvis: ' Moderate to severe left hydroureteronephrosis without a discrete obstructing cause identified.'
03/16 Urology Note: 'Rec: with satisfactory renal function overall, urgent intervention is not indicated; will await CRS and Oncology decisions to determine if alleviation of obstruction of left distal ureter is worth the potential morbidity.'
03/17 PN: 'CT abdomen pelvis showed moderate to severe left hydroureteronephrosis without discrete obstruction.'
Based on the above, could you clarify in the progress notes, the appropriate diagnosis, if significant, that supports the above abnormalities and additional evaluation, monitoring and/or treatment rendered:
Hydroureteronephrosis with obstruction
Hydroureteronephrosis without obstruction
Other
Use of terms such as suspected, likely, concern for, or probable (associated with a specific diagnosis that is being evaluated, monitored, or treated as if it exists) are acceptable and can be coded in the inpatient setting, when documented at the
time of discharge.
Thank you,
Kamryn Taylor RN, BSN
CDI Specialist
Available via [employer]
Please use your independent medical judgment in providing your response.
--- NOTE | 2024-03-20 12:11 | W.PN.CRS1 ---
Today's Communication / Plan
-
Pathology pending
No plans for surgery
Okay for discharge from our perspective when she is medically cleared.
Assessment/Plan
-
88-year-old female with PMH of PUD, HLD, HTN, aortic insufficiency, A-fib, right phrenic nerve palsy, CAD (s/p coronary stents), and distal rectal cancer s/p robotic LAR with DLI and 05/2022 s/p DLI reversal 08/2022 (path showing positive LVI, tumor
cells in 11/11 LNs; plan at that time was to monitor with no adjuvant therapy or active surveillance); seen in office for about 1 month of intermittent rectal bleeding, worsening fecal incontinence, intermittent abdominal pains migrating from the
left to the right as well as worsening SOB for 1 week; was sent to ED for significant SOB and possible bowel obstruction due to anastomotic stenosis (able to pass tip of finger, about 1.5cm diameter). In the ED, afebrile, HR 90s to 100s,
normotensive. WBC 10.1, Hb 9.9 (prior from 1 year ago 11.2), Cr 1.3, BNP 8000, chest x-ray�WNL, CTAP showing moderate to severe left hydroureteronephrosis without discrete obstructing cause, loculated fluid within the posterior pelvis measuring 5 x
7 x 3 cm, possibly seroma versus abscess
Vitals normal.
� No plans for percutaneous nephrostomy tube per urology.
-Still having loose stools, started on Imodium and Questran by hospitalist.
� Posterior pelvic fluid most likely ascites s/p IR attempt at drainage; no further indication
� Appreciate oncology. IR biopsy results are pending.
� CEA 2.7, CA125 43.5
� No obstruction, OK to ADAT
� Pain control, avoid narcotics if possible
� Eliquis restarted 03/18
� Appreciate hospitalist
-Okay for discharge from our perspective when medically cleared. Will update family members later today.
Subjective Data
Procedure
No complaints, denies n/v, pain controlled
Subjective Data
Date of Service: March 20, 2024
Patient states that she has loose stools. Per nursing record she has had no blood in her stools. She still has right lower quadrant pain. She feels bloated. She is tolerating a diet and has no complaints.
Objective Data
-
Vital Signs
Temp Pulse Resp BP Pulse Ox
97.5 F 96 20 142/74 96
03/20/24 07:21 03/20/24 07:21 03/20/24 07:21 03/20/24 07:21 03/20/24 07:21
Intake & Output
03/19/24 03/20/24 03/21/24
06:59 06:59 06:59
Intake Total 840 / 840 480 / 480
Output Total 250 / 250
Balance 590 / 590 480 / 480
Intake:
Oral fluids 480 / 480
IV fluids (Total) 840 / 840
Output:
Straight cath output 250 / 250
Other:
Number of approximated SMALL 1
amounts of urine
Number of approximated MODERATE 2 1
amounts of urine
Number of approximated LARGE 2 1
amounts of urine
How many times incontinent 1
SATURATED amount urine
Number of unmeasured liquid
stools
Rectum 3
Lab Results
03/19/24 07:25
03/19/24 07:25
Physical Exam
-
General: No Acute Distress
Abdomen: Soft, Distended and Tender (mild L side, Mild RLQ)
Skin: Warm and Dry
--- NOTE | 2024-03-20 12:16 | W.PN.ONC ---
Today's Communication / Plan
-
She seems medically stable. Biopsy is still pending. CA125 in the 400 range. Outpatient follow-up.
Impression
Impression
Posterior cul-de-sac fluid possible seroma
Evidence of omental caking against the abdominal wall and bilateral malignant inguinal lymph nodes likely representing carcinomatosis
Dementia
History of rectal carcinoma 2001
Hyperlipidemia
Renal insufficiency with left hydro
Anemia likely chronic inflammation
Atrial fibrillation
Plan
Plan
CT reviewed with Ronal Gar
Patient understands the distribution of the findings on CAT scan if malignant is not typically for treatable for curative intent
She is anxious to to pursue biopsy to understand options were clearly
Will obtain CEA and Ca 125
IR for ultrasound-guided biopsy of the inguinal lymph node
Will check with IR with regarding need to hold of aspirin and Eliquis
Will discuss with POA
Subjective/Objective
Subjective/Objective
She is feeling about the same. She reports no new symptoms. She denies much in the way of pain. Physical examination is unchanged.
Vital Signs:
Vital Signs
Temp Pulse Resp BP Pulse Ox
97.5 F 96 20 142/74 96
03/20/24 07:21 03/20/24 07:21 03/20/24 07:21 03/20/24 07:21 03/20/24 07:21
Lab Results:
Laboratory Data
WBC 10.7 10^3/uL (4.8-10.8) 03/19/24 07:25
Hgb 9.7 g/dL (12.0-16.0) L 03/19/24 07:25
Plt Count 241 10^3/uL (130-400) 03/19/24 07:25
PT 18.5 Sec (11.4-14.6) H 03/14/24 10:31
INR 1.53 03/14/24 10:31
eGFR 33.31 03/19/24 07:25
[2024-03-20 14:14] VITALS: BP 129/58
--- NOTE | 2024-03-21 07:45 | W.DCSUMMARY ---
Discharge Summary
Discharge Data
Date of Admission: 03/13/24
Date of Discharge: 03/20/24
-
Pending Results: No
Hospital Course
Discharging Physician : Dr Donal Apodaca
Disposition : Home
Primary care physician : Dr Brenda drummond
Principal Discharge diagnosis :
Suspected recurrence of rectal cancer versus new primary with peritoneal carcinomatosis
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
Diarrhea with unknown acuity
Acute on chronic diastolic ingestive heart failure
Rule out colonic obstruction
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
Chronic Discharge diagnosis :
Anemia of chronic disease
Paroxysmal atrial fibrillation
Coronary disease history of bypass
Cholecystectomy
History of robotic low anterior resection and diverting loop ileostomy in and later reversal
History of aortic insufficiency
Aortic insufficiency
Hospital Course :
Patient [id number] above mentioned past medical history comes with new onset of abdominal pain and distention. Patient was in fare collector surgery office and was felt to having difficult finger passing on JIM in office. Patient was sent in to ER for
further evaluation.
Patient had a CT abdomen pelvis in ER which showed pelvic seroma and signs of increased nodularity in abdomen pelvis with concern of peritoneal carcinomatosis. Patient also noted to having bilateral inguinal node lymphadenopathy suspicious of
metastatic disease.
Patient pelvic seroma was attempted to be drained by IRAD although on repositioning in IR found to be vanishing. This was felt to be more ascites than local seroma. No further intervention as this was likely considered malignant in nature with
findings of peritoneal carcinomatosis.
Oncology was involved in care and patient had CEA/CA 125 level checked. Patient underwent lymph node biopsy to diagnose and summarized in stage possible reoccurrence of rectal cancer versus a new malignancy. Biopsy results were pending at time of
discharge. Patient will follow-up with oncology in office to discuss finding and further steps.
Patient CT abdomen pelvis did not show any overt colonic obstruction. Patient had abdominal x-ray suggestive of possible ileus which was followed up with small bowel follow-through study and did not have any clear obstruction. Patient was started
on diet trial and was advanced to regular diet.
Patient was also having significant diarrhea and stool were checked for C. difficile/ova/parasite/bacterial etiology/norovirus and all were negative. Patient was started on as needed Imodium for symptomatic control.
Patient had large left hydroureteronephrosis and declining renal function. Patient was evaluated by urology and no intervention recommended. Patient not a candidate of nephrostomy tube per urology.
Post medical improvement patient was discharged home with follow-up with oncology colorectal surgery in office.
Important imaging findings :
None
Procedure findings :
None
Discharge Plan
-
Patient Disposition: Home with Home Care
Discharge Diagnosis/Procedures: Suspected recurrent abdominal malignancy vs new primary cancer, ascites, diarrhea, left hydroureteronephrosis
Condition: Fair
Diet: Regular
Activity: As tolerated
Driving Restrictions: No driving
Bathing Restrictions: OK to Shower
Referrals:
Rey Srivastava, DO [Active] - in one to two weeks
Brenda Drummond MD [Family Provider] - in one week
Prescriptions:
New
loperamide 2 mg Capsule
2 mg PO Q4HPRN PRN (Reason: Diarrhea) Qty: 60 0RF
tramadol 50 mg Tablet
50 mg PO Q8HPRN PRN (Reason: sev pain) Qty: 15 0RF
Rx Instructions:
Take half tablet for moderate pain
ondansetron 4 mg tablet,disintegrating
4 mg PO Q8H PRN (Reason: nausea and vomiting) Qty: 30 0RF
Continued
aspirin [Adult Low Dose Aspirin] 81 MG tablet,delayed release (DR/EC)
81 mg PO DAILY
ezetimibe 10 MG tablet
10 mg PO QPM
Eliquis 2.5 MG tablet
2.5 mg PO BID
furosemide 40 MG tablet
40 mg PO QPM Qty: 30 0RF
Rx Instructions:
NEW DOSE
pravastatin 80 mg Tablet
80 mg DAILY
metoprolol succinate 50 mg Tablet Extended Release 24 Hr
50 mg PO BID
memantine 10 mg Tablet
10 mg PO QPM
dapagliflozin propanediol [Farxiga] 10 mg Tablet
10 mg PO DAILY
Discharge Orders:
Discharge Patient (As Directed); Ordered 03/20/24
Ordered By: Donal Apodaca
Discharge Date and Time
Discharge Date/Time: 03/20/24 14:45
Print Language: KENYAN
== END 2024-03-20 14:45 | disposition home health service (06) | DRG 987 ==
LOC: 4 WEST ACU 21:53
PROVIDERS: Emergency Medicine; General Practice; Internal Medicine; Nurse Practitioner Acute Care; Nurse Practitioner Gerontology; Radiology Diagnostic Radiology; Radiology Vascular & Interventional Radiology; Registered Nurse; ADMITTING PHYSICIAN Hospitalist; ATTENDING PHYSICIAN Hospitalist; CONSULT PHYSICIAN Internal Medicine Hematology & Oncology; CONSULT PHYSICIAN Specialist; CONSULT PHYSICIAN Surgery; EMERGENCY PHYSICIAN Emergency Medicine; FAMILY PHYSICIAN Family Medicine
PROC: 07BJ3ZX Excision of Left Inguinal Lymphatic, Percutaneous Approach, Diagnostic (ICD-10-PCS; 2024-03-16)
DX: C78.6 Secondary malignant neoplasm of retroperitoneum and peritoneum (principal); I50.33 Acute on chronic diastolic (congestive) heart failure; K56.7 Ileus, unspecified; N17.9 Acute kidney failure, unspecified; N13.1 Hydronephrosis with ureteral stricture, not elsewhere classified; I48.21 Permanent atrial fibrillation; C20 Malignant neoplasm of rectum; E87.1 Hypo-osmolality and hyponatremia; C80.0 Disseminated malignant neoplasm, unspecified; N13.0 Hydronephrosis with ureteropelvic junction obstruction; R18.0 Malignant ascites; Z79.82 Long term (current) use of aspirin; I11.0 Hypertensive heart disease with heart failure; D63.8 Anemia in other chronic diseases classified elsewhere; I48.0 Paroxysmal atrial fibrillation; Z79.01 Long term (current) use of anticoagulants
CPT/HCPCS: 88305; 38505; 71046; 74021; 74177; 74250; 76380; 76942; 80048; 80053; 80061; 81003; 81099; 82248; 82378; 82570; 83690; 83735; 83880; 84300; 84439; 84443; 85025; 85027; 85610; 86304; 87045; 87046; 87324; 87328; 87329; 87427; 87449; 87798; 88333; 88341; 88342; 88360; 93005; 96374; 97162; 97166; 97530; 99285; Q9967